=== PATIENT | male | born 1985 | race Caucasian/White ===

== ENCOUNTER 2019-08-04 09:13 | Day surgery (SDC) | payer OTHER ==
[2019-08-04 09:49] LABS: Absolute Lymphocytes (CBC) 3.3 K/uL (0.7-4.9); Basophils % 0.6 % (0-1.3); Hematocrit 48.1 % (39.6-49.0); Lymphocytes % 30.7 % (15.3-44.8); MPV 8.5 fL (7.6-11.3); RBC Red Blood Cell Count 5.11 M/uL (4.33-5.43)
[2019-08-04 10:04] LABS: BUN Blood Urea Nitrogen 17 mg/dL (7-18); Bicarbonate 28 mmol/L (21-32); Glucose Level 112 mg/dL (74-106); Potassium 3.8 mmol/L (3.5-5.1); Sodium Level 138 mmol/L (136-145)
[2019-08-04] MEDS ORDERED: NA CHLORIDE 0.9% 1,000 ML ONE (10:06)
[2019-08-04] MEDS ORDERED: CEFOXITIN/SWI 1gm 1 GM/10 ML SYR ONE (10:06)
[2019-08-04] MEDS ORDERED: FENTANYL CITR 100 MCG/2 ML ONE ×2 (10:10→10:43)
[2019-08-04] MEDS ORDERED: MIDAZOLAM HCL 2 MG/2 ML INJ ONE (10:10)
[2019-08-04] MEDS ORDERED: LIDOCAINE 2% MPF 5 ML VIAL ONE ×2 (10:10→10:44)
[2019-08-04] MEDS ORDERED: dexAMETHasone 10 MG/ML VIAL ONE ×2 (10:10→10:43)
[2019-08-04] MEDS ORDERED: propofoL 200 MG/20 ML VIAL IV ONE ×2 (10:10→10:43)
--- NOTE | 2019-08-04 10:20 | RAD REPORT ---
EXAM DESCRIPTION: RAD - Chest Pa And Lat (2 Views) - 08/04/2019 10:04 am CLINICAL HISTORY: PREOP STAT ROOM 1, preop exam pending hemorrhoid surgery COMPARISON: None TECHNIQUE: Frontal and lateral views of the chest were obtained. FINDINGS: The lungs are clear. Heart size is normal and central vasculature is within normal limit s. No pleural effusion or pneumothorax seen. No acute bony finding noted. No aortic abnormality. IMPRESSION: No acute cardiopulmonary process.
--- OUTSIDE RECORDS SUMMARY | 2019-08-04 10:24 | XMS REPORT | Continuity of Care Document ---
:1985 Author Organization [facility] Care Team Providers Name Role Phone [facility] Unavailable Un available Problems Problem Status Onset Classification Date Comments Sourc e Date Reported Diabetes mellitus Active Problem 02/21/2017 M H Medical (disorder) Group Gastroesophageal Active Problem 02/21/2017 Medical reflux disease Group (disorder) History of polyp of Active Problem 02/21/2017 Medical colon (situation) Gr oup Hypertensive Active Problem 02/21/2017 Med ical disorder, systemic G roup arterial (disorder) Morbid obesity Active Problem 02/21/2017 M edical (disorder) Group Narcotic drug user Active Problem 02/21/2017 Medical (finding) Group Medications Medication Details Route Status Patient Ordering Order Source Instructions Provider Date Hydrocortisone 25 1 appl, [place], Active MH MG/ML Rectal BID, X 14 017 Medical Cream day, # 30 Group gm, 3 Refill(s), Pharmacy: [facility] [id number] Esomeprazole 40 40 mg = 1 Active MH MG Enteric Coated cap, PO, 017 Medic al Capsule [Nexium] BID, # 60 Group cap, 11 Refill(s), Pharmacy: [facility] [id number] metoprolol PO, Daily, 0 Active MH extended release Refill(s) 017 Medic al Group Cymbalta PO, 0 Active MH Refill(s) 017 Medical Group Allergies, Adverse Reactions, Alerts No Known Medication Allergies Immunizations No Data Provided for This Section Results No Data Provided for This Section Pathology Reports No Data Provided for This Section Diagnostic Reports No Data Provided for This Section Consultation Notes No Data Provided for This Section Discharge Summaries No Data Provided for This Section History and Physicals No Data Provided for This Section Vital Signs Vital Sign Value Date Comments Source Height 170.18 cm 02/18/2017 Medical Grou p Weight 119.205 02/18/2017 Medical Grou p BMI Calculated 41.16 02/18/2017 Medical Gr oup Systolic (mm Hg) 144 02/18/2017 Medical Group Diastolic (mm Hg) 82 02/18/2017 Medical Group Encounters Location Location Encounter Encounter Reason Attending ADM DC Stat us Source Details Type Number For Provider Date Date Visit Outpatient [id number] [place] 12/08 [facility] [place] [facility] [id number] LUPE MARTE 02/10 [facility] Out[facility] [id number] WAGNER 02/18 [facility] [place]Note 2] [facility] Outpatient [id number] Wagner 02/18 02/19 [facility] [place] Procedures Procedure Code Date Perfomer Comments Source Colonoscopy [id number] 12/31/19 Medical 17 Group Esophagogastroduodenoscopy [id number] 12/31/19 Medical 17 Group Hemorrhoidectomy [id number] Medic al Group Reconstruction of facial bones [id number] Medical Group Assessment and Plan No Data Provided for This Section Plan of Care No Data Provided for This Section Social History Social History Date Source Social History TypeResponse 02/18/2017 Medical G roufrancia Substance Abuse Use: None. Alcohol Current Smoking Status Former smoker; Exposure to Tobacco Smoke None; Cigarette Smoking Last 365 Days Yes; Reg Smoking Cessation Counseling No Family History No Data Provided for This Section Advance Directives No Data Provided for This Section Functional Status No Data Provided for This Section
--- OUTSIDE RECORDS SUMMARY | 2019-08-04 10:24 | XMS REPORT ---
:[address] [facility] t Address [address] [place] [address] [address] [place] [address] Care Team Providers Name Role Phone Amber Rod Attending Clinician Problems Condition Condition Condition Status Onset Resolution Last Treating Co mments Source Name Details Category Date Date Treatment Clinician Date Diabetes Problem Active 2017-02-21 mellitus 01:27:35 Medica l (disorder) Diabetes Gr oup mellitus (disorder) Active Problem 02/21/2017 Medical Group Gastroesop Problem Active 2017-02-21 M H hageal 01:27:35 Medical reflux Group disease Gastroesop (disorder) hageal reflux disease (disorder) Active Problem 02/21/2017 Medical Group History of Problem Active 2017-02-21 M H polyp of 01:27:35 Medica l colon History Group (situation of polyp ) of colon (situation ) Active Problem 02/21/2017 Medical Group Hypertensi Problem Active 2017-02-21 H ve 01:27:35 Medical disorder, Group systemic Hypertensi arterial ve (disorder) disorder, systemic arterial (disorder) Active Problem 02/21/2017 Medical Group Morbid Problem Active 2017-02-21 obesity 01:27:35 Medical (disorder) Morbid Grou p obesity (disorder) Active Problem 02/21/2017 Medical Group Narcotic Problem Active 2017-02-21 drug user 01:27:35 Medic al (finding) Narcotic Anhomy up drug user (finding) Active Problem 02/21/2017 Medical Group Allergies, Adverse Reactions, Alerts This patient has no known allergies or adverse reactions. Social History Social Habit Start Date Stop Date Quantity Comments Source Social History 2017-02-18 2017-02-18 Dl olivo 20:11:46 20:11:46 [facility] Medications Ordered Filled Start Stop Current Ordering Indication Dosage Frequency Signature Comments Components Source Medication Medication Date Date Medication? Clinician (SIG) Name Name Hydrocortis 2016-03 Yes 1 appl, one 25 2-14 [place], BID, X Medical MG/ML 20:34: 14 day, # Group Rectal 00 30 gm, 3 Cream Refill(s), Pharmacy: [facility] [id number] Esomeprazol 2016-03 Yes 40 mg = 1 M H e 40 MG 2-14 cap, PO, Medical Enteric 20:34: BID, # 60 Group Coated 00 cap, 11 Capsule Refill(s), [Nexium] Pharmacy: [facility] [id number] metoprolol 2016-03 Yes PO, Daily, M H extended 2-14 0 Medical release 20:12: Refill(s) Group 00 Cymbalta 2016-03 Yes PO, 0 MH 2-14 Refill(s) Medical 20:12: Group 00 Vital Signs Vital Name Observation Time Observation Value Comments Source Height 2017-02-18 20:10:00 170.18 cm Medic al Group Weight 2017-02-18 20:10:00 Medic al Group BMI Calculated 2017-02-18 20:10:00 Med ical Group Systolic (mm Hg) 2017-02-18 20:10:00 M edical Group Diastolic (mm Hg) 2017-02-18 20:10:00 Medical Group Procedures Procedure Date / Time Performing Source Performed Clinician Colonoscopy 2016-12-30 05:00:00 Medical G roup Esophagogastroduodenoscopy 2016-12-30 05:00:00 [facility] Medical Group Hemorrhoidectomy Medical Grou p Reconstruction of facial bones M Medical Group Encounters Start End Encounter Admission Attending Care Care Encounter Source Date/Time Date/Time Type Type Clinicians Facility Department ID 2017-02-18 2017-02-19 [id number] 19:45:00 05:59:59 [facility] Jamila 2017-02-18 2017-02-18 Outpatient Marcel [facility] [id number] 13:45:00 23:59:59 Wagner Clark 03 2017-02-18 2017-02-18 Outpatient [facility] [id number] Memoria 13:45:00 13:45:00 03 nicol Russ 2017-02-10 2017-02-10 [id number] Memoria 09:00:00 09:00:00 04 nicol Russ 2016-12-08 2016-12-08 Outpatient [facility] [id number] Memoria 14:45:00 14:45:00 01 nicol Russ Results This patient has no known results.
[2019-08-04] MEDS ORDERED: GLYCOPYRROLATE 0.2 MG/ML SYR ONE (11:03)
[2019-08-04] MEDS ORDERED: KETOROLAC 30 MG/ML INJ ONE (11:05)
[2019-08-04] MEDS: HYDROMORPHONE HCL 2 MG/ML inj ONE ×4 (11:23→11:41)
[2019-08-04] MEDS: HYDROMORPHONE HCL 1 MG/ML INJ ONE ×2 (11:46→11:52)
[2019-08-04] MEDS ORDERED: LABETALOL 20 MG/4ML SYRINGE IV ONE ×2 (12:18→13:42)
[2019-08-04] MEDS ORDERED: HYDROCODONE/APAP 7.5/325 MG TAB ONE (12:54)
[2019-08-04 14:02] VITALS: TEMP 98.2; O2SAT 95
[2019-08-04 14:03] VITALS: BP 144/99
--- NOTE | 2019-08-04 21:04 | OP ---
Date of Procedure: 08/04/2019 Surgeon: Felipe Elliott MD Preoperative Diagnosis: Thrombosed hemorrhoid. Postoperative Diagnosis: Thrombosed hemorrhoid, complex in nature with external and internal compone nts. Procedure Performed: Exam under anesthesia, rigid proctoscopy, complex hemorrhoidectomy x1. Estimated Blood Loss: Minimal. Specimen: Thrombosed hemorrhoid. Findings: Left lateral complex thrombosed hemorrhoids. Anesthesia: General. Complications: None. Patient tolerated the procedure in stable condition, taken to Recovery in good general condition. Procedure In Detail: Patient was brought to the OR and placed in supine position. General anesthesi a begun. Patient was prepped and draped in the usual sterile fashion. Exam under anesthesia reveale d a thrombosed hemorrhoids in the left lateral. Rigid proctoscopy confirmed the finding, had an exte rnal and internal components. Marcaine 0.5% infiltrated for postop pain control. The Harmonic Scalp el was used to excise the entire hemorrhoid complex in nature. There are external and internal compon ents, sent to Pathology. No evidence of bleeding noted. Rectal pack consisting of Gel-Foam, Surgice l, Vaseline gauze was placed in the anal canal. Sterile dressing was applied. Patient was awakened and taken to Recovery in good general condition. Discharge Note: Patient will go to Day Surgery, then home when stable. Disposition: Home. Condition: Stable. Discharge Instructions: Resume home medications and diet. Activity as tolerated. No heavy lifting. Remove outer dressing in a.m. Sitz baths q.i.d. and after bowel movements. High-fiber diet. Cola ce 100 mg p.o. b.i.d., Procto- HC 2.5% to anus b.i.d. and p.r.n., Tylenol No.3 one tablet q.4 p.r.n. pain. Follow up in my office in 2 weeks. Call for appointment. PILAR/GARY Voice ID: [id number] Report ID: [id number]
--- NOTE | 2019-08-05 12:58 | EKG ---
Test Date: 2019-08-04 Test Time: 09:46:57 Director Process: CARLOS ENRIQUE MEASUREMENT RESULTS: Intervals: Rate: 83 WY: 136 QRSD: 90 QT: 366 QTc: 430 [place]: P: 58 WY: 136 QRS: 71 T: 72 INTERPRETIVE STATEMENTS: Normal sinus rhythm Normal ECG No previous ECG available for comparison Electronically Signed On 08-05-19 12:57:55 CDT by True Portillo
== END 2019-08-04 13:55 | disposition home or self-care (01) ==
LOC: OR 09:13
PROVIDERS: ATTEND Surgery
PROC: 0DJD8ZZ Inspection of Lower Intestinal Tract, Via Natural or Artificial Opening Endoscopic (ICD-10-PCS; 2019-08-04)
PROC: 06BY4ZC Excision of Hemorrhoidal Plexus, Percutaneous Endoscopic Approach (ICD-10-PCS; principal; 2019-08-04 12:45)
DX: K64.5 Perianal venous thrombosis (principal)
CPT/HCPCS: 46255; 93005; 85025; 80048; 36415; 82947; 88304; 71046; 45300; J2704; J2250; J1170 ×2; J3010; J1100; J7030; 88302

== ENCOUNTER → 2023-03-19 | Emergency (ER) | payer OTHER ==
[~2023-03-19] MED LIST: DIAZEPAM 10 MG/2 ML INJ SYRINGE ONE; NA CHLORIDE 0.9% 1,000 ML ONE
[2023-03-19 17:43] LABS: Barbiturates NEGATIVE (NEGATIVE); Benzodiazepines NEGATIVE (NEGATIVE); Cocaine NEGATIVE (NEGATIVE); METHAMPHETAM NEGATIVE (NEGATIVE); Methadone NEGATIVE (NEGATIVE); Opiates NEGATIVE (NEGATIVE); Phencyclidine NEGATIVE (NEGATIVE); THC Cannibis NEGATIVE (NEGATIVE)
[2023-03-19 17:49] LABS: Specific Gravity 1.027 (1.005-1.030); Urine Bacteria None Seen /HPF (<20); Urine Bilirubin NEGATIVE (Negative); Urine Blood Negative (Negative); Urine Clarity Clear (Clear); Urine Color Light-Yellow (Yellow); Urine Glucose 4+ (Over) (Negative); Urine Mucus Slight /HPF (None Seen); Urine Protein TRACE (Negative); Urine RBC None Seen /HPF (None Seen); Urine Urobilinogen Normal (Normal)
[2023-03-19 17:50] LABS: Absolute Lymphocytes (CBC) 2.7 K/uL (0.7-4.9); Hematocrit 51.7 % (39.6-49.0); Lymphocytes % 25.4 % (15.3-44.8); MCV 89.5 fL (80-100); MPV 7.4 fL (7.6-11.3); Platelets 255 thou/uL (152-406); RBC Red Blood Cell Count 5.77 M/uL (4.33-5.43)
[2023-03-19 17:53] LABS: Protime INR 0.91
[2023-03-19 18:02] LABS: ALT/SGPT 100 U/L (16-61); AST/SGOT 46 U/L (15-37); Albumin 3.6 g/dL (3.4-5.0); Alkaline Phosphatase 111 U/L (45-117); BUN Blood Urea Nitrogen 12 mg/dL (7-18); Bicarbonate 24 mEq/L (21-32); Bilirubin Direct 0.2 mg/dL (0-0.2); Bilirubin Indirect, Calculated 0.6 mg/dL (0.2-0.8); Bilirubin Total 0.8 mg/dL (0.2-1.0); Glomerular Filtration Rate 85 ml/min (=/>90); Glucose Level 143 mg/dL (74-106); Potassium 3.5 mEq/L (3.5-5.1); Protein, Total 7.9 g/dL (6.4-8.2); Sodium Level 134 mEq/L (136-145)
--- NOTE | 2023-03-19 19:04 | ER ---
Nurse's Notes [facility] Name: Cristiano Bbo Age: 37 yrs Sex: Male : 1985 Arrival Date: 03/19/2023 Time: 15:39 Bed 14 Private MD: Diagnosis: Alcohol dependence with withdrawal Presentation: 03/19 15:47 Chief complaint: EMS states: "sent here [place] [facility] for possible alcohol aa5 withdrawal". Pt normally drinks 3 pints of vodka every day. Pt reports last drink was yesterday at 0900. Pt states "I want to detox". 15:47 Acuity: ROLY 2 aa5 15:47 Coronavirus screen: At this time, the client does not indicate any symptoms associated aa5 with coronavirus-19. Ebola Screen: Patient denies travel to an Ebola-affected area in the 21 days before illness onset. Initial Sepsis Screen: Does the patient meet any 2 criteria? HR > 90 bpm. Does the patient have a suspected source of infection? No. Patient's initial sepsis screen is negative. Risk Assessment: Do you want to hurt yourself or someone else? Patient reports no desire to harm self or others. Onset of symptoms was March 19, 2023. 15:47 Method Of Arrival: Wheelchair aa5 Historical: - Allergies: 15:50 Ativan (diarrhea ); aa5 - PMHx: 15:48 acid reflux; Hypercholesterolemia; Hypertension; Prediabetic; Alcoholism; aa5 - PSHx: 15:48 facial reconstruction; aa5 - Immunization history:: Adult Immunizations unknown. - Social history:: Smoking status: Patient reports the use of cigarette tobacco products, Patient uses alcohol, 3 pints of Vodka . Screenin:35 [facility] ED Fall Risk Assessment (Adult) History of falling in the last 3 months, mb9 including since admission No falls in past 3 months (0 pts) Confusion or Disorientation No (0 pts) Intoxicated or Sedated No (0 pts) Impaired Gait No (0 pts) Mobility Assist Device Used No (0 pt) Altered Elimination No (0 pt) Score/Fall Risk Level 0 - 2 = Low Risk Oriented to surroundings, Maintained a safe environment, Educated pt \\T\\ family on fall prevention, incl call for assistance when getting out of bed. Abuse screen: Denies threats or abuse. Nutritional screening: No deficits noted. Tuberculosis screening: No symptoms or risk factors identified. Assessment: 17:14 Reassessment: Pt brought back to ER room. mb9 17:34 General: Appears in no apparent distress. Behavior is cooperative, anxious. Pain: mb9 Denies pain. Neuro: Jones Agitation-Sedation Scale (RASS): 0 - Alert and Calm Level of Consciousness is awake, alert, obeys commands, Oriented to person, place, time, situation, Appropriate for age Pupils are PERRLA. Cardiovascular: Heart tones S1 S2 present Patient's skin is warm and dry. Rhythm is sinus tachycardia. Respiratory: Airway is patent Respiratory effort is even, unlabored, Respiratory pattern is regular, symmetrical. GI: Abdomen is round non-distended, Bowel sounds present X 4 quads. Abd is soft and non tender X 4 quads. : No signs and/or symptoms were reported regarding the genitourinary system. EENT: No signs and/or symptoms were reported regarding the EENT system. Derm: Skin is pink, warm \\T\\ dry. Musculoskeletal: Range of motion: intact in all extremities. Vital Signs: 15:47 BP 132 / 102; Pulse 115; Resp 20 S; Temp 98.3(TE); Pulse Ox 98% on R/A; Weight 108.86 aa5 kg (R); Height 5 ft. 8 in. (R); 18:13 BP 177 / 117; Pulse 120; Resp 18; Pulse Ox 100% on R/A; mb9 18:53 BP 145 / 94; Pulse 118; Resp 18; Pulse Ox 97% on R/A; mb9 15:47 Body Mass Index 36.49 (108.86 kg, 172.72 cm) aa5 ED Course: 15:47 Patient arrived in ED. aa5 15:47 Arm band placed on. aa5 15:50 Ervin Fischer PA is PHCP. cp 15:50 Caden Larry MD is Attending Physician. cp 15:50 Frantz Faith MD is Attending Physician. cp 15:52 Triage completed. aa5 17:14 María Bourgeois, JAE is Primary Nurse. mb9 17:15 Placed in gown. Bed in low position. Call light in reach. Side rails up X 1. Client mb9 placed on continuous cardiac and pulse oximetry monitoring. NIBP monitoring applied. laboratory monitor on. 17:33 Acetaminophen Sent. bc6 17:33 Basic Metabolic Panel Sent. bc6 17:33 CBC with Diff Sent. bc6 17:33 ETOH Level Sent. bc6 17:33 Hepatic Function Sent. bc6 17:33 PT-INR Sent. bc6 17:33 Ptt, Activated Sent. bc6 17:33 Salicylate Sent. bc6 17:33 Influenza Screen (a \\T\\ B) Sent. bc6 17:33 Strep Sent. bc6 17:33 COVID-19 SARS RT PCR Sent. bc6 17:35 No provider procedures requiring assistance completed. mb9 19:20 IV discontinued, intact, bleeding controlled, No redness/swelling at site. Pressure mb9 dressing applied. Administered Medications: 17:41 Drug: Diazepam IVP 2 mg IVP once Route: IVP; Site: right antecubital; mb9 18:33 Follow up: Response: No adverse reaction mb9 18:32 Drug: Diazepam IVP 5 mg IVP once Route: IVP; Site: right antecubital; mb9 19:20 Follow up: Response: No adverse reaction mb9 18:33 Drug: NS 0.9% IV 1000 ml IV at 1 bolus Per protocol; 1000 mL bolus Route: IV; Rate: 1 mb9 bolus; Site: right antecubital; 19:20 Follow up: Response: No adverse reaction; IV Status: Completed infusion mb9 Medication: 17:35 VIS not applicable for this client. mb9 Outcome: 19:03 Discharge ordered by MD. cp 19:20 Discharged to home ambulatory, mb9 19:20 Condition: stable 19:20 Discharge instructions given to patient, family, Instructed on discharge instructions, follow up and referral plans. Demonstrated understanding of instructions, follow-up care, medications, Prescriptions given X 1, 19:20 Patient left the ED. mb9 Signatures: Yasmin Callejas RN RN aa5 Ervin Fischer PA PA cp Breneman, Mary Beth, RN RN mb9 Judit Cruz bc6 Corrections: (The following items were deleted from the chart) 15:52 15:47 Chief complaint: EMS states: "sent here from [facility] for possible alcohol aa5 withdrawal". Pt normally drinks vodka every day. aa5 15:52 15:47 Chief complaint: EMS states: "sent [place] [facility] for possible alcohol aa5 withdrawal". Pt normally drinks 3 pints of vodka every day. Pt reports last drink was yesterday at 0900. aa5 15:52 15:47 BP 132 / 102; Pulse 115bpm; Resp 20bpm; Spontaneous; Pulse Ox 98% RA; Temp 98.3F aa5 Temporal; aa5
--- NOTE | 2023-03-19 19:04 | EDPHYS ---
Physician Documentation [facility] Name: Cristiano Bob Age: 37 yrs Sex: Male : 1985 Arrival Date: 03/19/2023 Time: 15:39 Bed 14 Private MD: ED Physician Frantz Faith HPI: 03/19 16:35 This 37 yrs old Male presents to ER via Wheelchair with complaints of Alcohol cp Withdrawal. 16:35 The patient presents to the emergency department with a history of substance abuse, cp Type: vodka, 3 bottles per day, for years. 16:35 [facility] Elevated cp blood pressure, tremors today. Last drink of alcohol was yesterday. Denies history of seizures with withdrawals in the past. Historical: - Allergies: 15:50 Ativan (diarrhea ); aa5 - PMHx: 15:48 acid reflux; Hypercholesterolemia; Hypertension; Prediabetic; Alcoholism; aa5 - PSHx: 15:48 facial reconstruction; aa5 - Immunization history:: Adult Immunizations unknown. - Social history:: Smoking status: Patient reports the use of cigarette tobacco products, Patient uses alcohol, 3 pints of Vodka . ROS: 16:40 Constitutional: Negative for body aches, chills, fever, poor PO intake, cp 16:40 Eyes: Negative for injury, pain, redness, and discharge, cp 16:40 ENT: Negative for drainage from ear(s), ear pain, sore throat, difficulty swallowing, difficulty handling secretions, 16:40 Cardiovascular: Negative for chest pain, palpitations, 16:40 Respiratory: Negative for cough, shortness of breath, wheezing, 16:40 Abdomen/GI: Negative for abdominal pain, vomiting, diarrhea, constipation, black/tarry stool, rectal bleeding, 16:40 Neuro: Positive for tremor, Negative for altered mental status, dizziness, headache, seizure activity, weakness, 16:40 Psych: Positive for alcohol dependence, Negative for auditory hallucinations, visual hallucinations, homicidal ideation, suicide gesture, suicidal ideation, 16:40 All other systems are negative, Exam: 16:45 Constitutional: The patient appears in no acute distress, alert, awake, cp non-diaphoretic, non-toxic, well developed, well nourished, 16:45 Head/Face: Normocephalic, atraumatic. cp 16:45 Eyes: Periorbital structures: appear normal, Pupils: equal, round, and reactive to light and accomodation, Extraocular movements: intact throughout, Conjunctiva: normal, no exudate, no injection, Sclera: no appreciated abnormality, Lids and lashes: appear normal, bilaterally, 16:45 ENT: External ear(s): are unremarkable, Nose: is normal, Mouth: Lips: moist, Oral mucosa: pink and intact, moist, Posterior pharynx: is normal, airway is patent, no erythema, no exudate, 16:45 Neck: ROM/movement: is normal, is supple, without pain, no range of motions limitations, no nuchal rigidity, 16:45 Chest/axilla: Inspection: normal, 16:45 Cardiovascular: Rate: tachycardic, Rhythm: regular, Edema: is not appreciated, JVD: is not appreciated, 16:45 Respiratory: the patient does not display signs of respiratory distress, Respirations: normal, no use of accessory muscles, no retractions, Breath sounds: are clear throughout, 16:45 Abdomen/GI: Inspection: abdomen appears normal, Palpation: abdomen is soft and non-tender, in all quadrants, 16:45 Back: pain, is absent, ROM is normal, 16:45 Neuro: Orientation: to person, place \T\ time. Mentation: is normal, Cerebellar function: is grossly normal, Motor: moves all fours, strength is normal, Abnormal movements: resting tremor, is located in the right hand and left hand, Vital Signs: 15:47 BP 132 / 102; Pulse 115; Resp 20 S; Temp 98.3(TE); Pulse Ox 98% on R/A; Weight 108.86 aa5 kg (R); Height 5 ft. 8 in. (R); 18:13 BP 177 / 117; Pulse 120; Resp 18; Pulse Ox 100% on R/A; mb9 18:53 BP 145 / 94; Pulse 118; Resp 18; Pulse Ox 97% on R/A; mb9 15:47 Body Mass Index 36.49 (108.86 kg, 172.72 cm) aa5 MDM: 16:04 Patient medically screened. cp 19:00 ED course: Vital signs noted. Patient remains tachycardic with a heart rate in the 120s cp after a total of 7 volume was given. Discussed lab results and EKG and recommendation of inpatient treatment for alcohol withdrawals with a possible transfer to the [place]. Patient refuses at this time and requests discharge to home for continued monitoring and will follow-up outpatient next week. Patient denies any history of seizures when withdrawn off alcohol and will return if symptoms worsen. 19:02 Data reviewed: vital signs, nurses notes, lab test result(s), EKG, and as a result, I cp will discharge patient. 19:02 Consideration of Admission/Observation Escalation of care including cp admission/observation considered. I considered the following discharge prescriptions or medication management in the emergency department Medications were administered in the Emergency Department. See MAR. Care significantly affected by the following chronic conditions: Hypertension, alcoholism. Counseling: I had a detailed discussion with the patient and/or guardian regarding the historical points, exam findings, and any diagnostic results supporting the discharge/admit diagnosis, the presence of at least one elevated blood pressure reading (>120/80) during this emergency department visit, lab results, the need for outpatient follow up, a family practitioner, to return to the emergency department if symptoms worsen or persist or if there are any questions or concerns that arise at home. Response to treatment: the patient's symptoms have mildly improved after treatment. Refusal of service: The patient/guardian displays adequate decision making capability and despite a detailed discussion of alternatives, benefits, risks, and consequences refuses: Admission to the hospital for further work-up and treatment. 03/19 16:30 Order name: COVID-19 SARS RT PCR; Complete Time: 18:25 cp 03/19 16:30 Order name: Strep cp 03/19 16:30 Order name: Influenza Screen (a \T\ B); Complete Time: 18:13 cp 03/19 16:35 Order name: Acetaminophen; Complete Time: 18:13 cp 03/19 16:35 Order name: Basic Metabolic Panel; Complete Time: 18:13 cp 03/19 18:25 Interpretation: Normal except: NA 134; GLUC 143; GFR 85. cp 03/19 16:35 Order name: CBC with Diff; Complete Time: 18:13 cp 03/19 16:35 Order name: ETOH Level; Complete Time: 18:13 cp 03/19 16:35 Order name: Hepatic Function; Complete Time: 18:13 cp 01/12 16:35 Order name: PT-INR; Complete Time: 18:13 cp 03/19 16:35 Order name: Ptt, Activated; Complete Time: 18:13 cp 03/19 16:35 Order name: Salicylate; Complete Time: 18:17 cp 03/19 16:35 Order name: Urinalysis w/ reflexes; Complete Time: 18:13 cp 03/19 16:35 Order name: Urine Drug Screen; Complete Time: 18:13 cp 03/19 18:33 Order name: Throat Culture EDMS 03/19 16:35 Order name: EKG; Complete Time: 16:35 cp 03/19 16:35 Order name: EKG - Nurse/Tech; Complete Time: 17:33 cp 03/19 16:35 Order name: IV Saline Lock; Complete Time: 17:33 cp 03/19 16:35 Order name: Labs collected and sent; Complete Time: 17:33 cp 03/19 16:35 Order name: Suicide Screening ([place]); Complete Time: 17:33 cp Administered Medications: 17:41 Drug: Diazepam IVP 2 mg IVP once Route: IVP; Site: right antecubital; mb9 18:33 Follow up: Response: No adverse reaction mb9 18:32 Drug: Diazepam IVP 5 mg IVP once Route: IVP; Site: right antecubital; mb9 19:20 Follow up: Response: No adverse reaction mb9 18:33 Drug: NS 0.9% IV 1000 ml IV at 1 bolus Per protocol; 1000 mL bolus Route: IV; Rate: 1 mb9 bolus; Site: right antecubital; 19:20 Follow up: Response: No adverse reaction; IV Status: Completed infusion mb9 Disposition Summary: 03/19/23 19:03 Discharge Ordered Notes: Location: Home cp Condition: Stable cp Diagnosis - Alcohol dependence with withdrawal cp Followup: cp - With: Private Physician - When: 2 - 3 days - Reason: Recheck today's complaints Discharge Instructions: - Discharge Summary Sheet cp - Alcohol Withdrawal Syndrome cp - Alcohol Use Disorder cp - Alcohol Abuse and Nutrition cp Forms: - Medication Reconciliation Form cp - Thank You Letter cp - Antibiotic Education cp - Prescription Opioid Use cp - Patient Portal Instructions cp - Leadership Thank You Letter cp Prescriptions: - chlordiazepoxide HCl 25 mg Oral capsule - take 1 capsule ORAL route 4 times per day as needed for anxiety and alcohol cp withdrawal; 20 capsule; Refills: 0, Product Selection Permitted Addendum: 03/22/2023 20:29 I was immediately available for consultation during this patient's visit. I did not e c2 personally see the patient or discuss the patient with the PORFIRIO. . Signatures: Dispatcher [employer] Yasmin Arthur RN RN aa5 Ervin Fischer PA PA cp Breneman, Mary Beth, RN RN mb9 Frantz Faith MD MD ec2
[2023-03-19 21:49] VITALS: TEMP 98.3
[2023-03-19 22:01] VITALS: BP 145/94; O2SAT 97
--- NOTE | 2023-03-22 17:06 | EKG ---
Test Date: 2023-03-19 Test Time: 17:30:43 Environmental Remediation Consultant: MB MEASUREMENT RESULTS: Intervals: Rate: 120 SD: 124 QRSD: 84 QT: 330 QTc: 466 Wilkinson: P: 77 SD: 124 QRS: 78 T: 77 INTERPRETIVE STATEMENTS: Sinus tachycardia Otherwise normal ECG Compared to ECG 06/10/2022 17:32:20 Myocardial infarct finding no longer present T-wave abnormality no longer present Possible ischemia no longer present Electronically Signed On 03-22-23 16:59:35 NURSE WOUND by Chino Walker
== END ==
LOC: ER 15:39
DX: F10.239 Alcohol dependence with withdrawal, unspecified (principal); I10 Essential (primary) hypertension; Z11.52 Encounter for screening for COVID-19; Z88.8 Allergy status to other drugs, medicaments and biological substances; Z72.0 Tobacco use
CPT/HCPCS: 96361; 93005; 87070; 85025; 81001; 80048; 36415; 85610; 80076; 87081; 85730; 87635; 80307; 87804 ×2; 96374; 99285; 80143; 80179; 82077; J3360 ×2; J7030

== ENCOUNTER 2024-06-14 10:00 | Inpatient (IN) | payer OTHER ==
[2024-06-14] MEDS ORDERED: LORazepam 2 MG/ML VIAL ONE (10:37)
[2024-06-14] MEDS ORDERED: THIAMINE 200 MG/2 ML INJ ONE (10:37)
[2024-06-14] MEDS ORDERED: MULTIVITAMIN TAB PO ONE (10:38)
[2024-06-14] MEDS ORDERED: NA CHLORIDE 0.9% 1,000 ML ONE ×2 (10:38→14:00)
[2024-06-14 10:48] LABS: Absolute Basophils 0.1 K/uL (0-0.5); Absolute Eosinophils 0.2 K/uL (0-0.5); Absolute Lymphocytes (CBC) 1.9 K/uL (0.7-4.9); Absolute Monocytes 0.6 K/uL (0.1-1.3); Absolute Neutrophil 3.3 K/uL (1.8-8.0); Basophils % 1.2 % (0-1.3); Eosinophils % 3.3 % (0-4.4); Hematocrit 44.8 % (39.6-49.0); Hemoglobin 15.4 g/dL (13.6-17.9); Lymphocytes % 31.4 % (15.3-44.8); MCH 29.4 pg (27.0-35.0); MCHC 34.5 g/dL (32.0-36.0); MCV 85.1 fL (80-100); MPV 7.2 fL (7.6-11.3); Monocytes % 9.5 % (3.3-12.3); Neutrophils % 54.6 % (41.7-73.7); Nucleated Red Blood Cells % 0.1 % (0-0); Platelets 270 thou/uL (152-406); RBC Red Blood Cell Count 5.26 M/uL (4.33-5.43); Red Cell Distribution Width 16.5 % (12.1-15.2)
[2024-06-14 11:10] LABS: Albumin 3.9 g/dL (3.4-5.0); Albumin/Globulin Ratio 1.1 (1.1-1.8); Anion Gap 14.8 mEq/L (5.0-15.0); Bilirubin Total 0.4 mg/dL (0.2-1.0); Globulin 3.7 g/dL (2.3-3.5); Potassium 3.8 mEq/L (3.5-5.1); Protein, Total 7.6 g/dL (6.4-8.2)
--- NOTE | 2024-06-14 12:42 | EDPHYS ---
Physician Documentation [facility] Name: Cristiano Bob Age: 38 yrs Sex: Male : 1985 Arrival Date: 06/14/2024 Time: 10:00 Bed 2 Private MD: ED Physician Damien Lopez HPI: 06/14 10:55 This 38 yrs old Male presents to ER via Ambulatory with complaints of detox. ms3 10:55 38-year-old male with past medical history of acid reflux, alcoholism, hyperlipidemia, ms3 hypertension presents to the emergency department for alcohol withdrawal. Patient states he drinks approximately 750 mL of vodka per day. Patient states that some days he drinks 1500 mL of vodka. Patient endorses nausea and vomiting. Patient denies any alleviating or inciting factors. Patient states he would like to quit drinking and his last drink was this morning which was half a 750 mL bottle.. Historical: - Allergies: 10:16 No Known Allergies; jl7 - PMHx: 10:16 acid reflux; Alcoholism; Hypercholesterolemia; Hypertension; Prediabetic; jl7 - PSHx: 10:16 facial reconstruction; jl7 - Immunization history:: Adult Immunizations unknown. - Infectious Disease History:: Denies. - Social history:: Smoking status: Patient reports the use of cigarette tobacco products, smokes one pack cigarettes per day. Patient uses alcohol, on a daily basis. Vodka 750 mL. ROS: 10:55 Constitutional: Negative for fever, and chills. Cardiovascular: Negative for chest ms3 pain, and palpitations. Respiratory: Negative for shortness of breath, cough, wheezing, and pleuritic chest pain, Abdomen/GI: Negative for abdominal pain, nausea, vomiting, diarrhea, and constipation, MS/Extremity: Negative for injury and deformity, Skin: Negative for injury, rash, and discoloration, 10:55 Neuro: Positive for tremor, Exam: 10:55 Constitutional: This is a well developed, well nourished patient who is awake, alert, ms3 and in no acute distress. Respiratory: Lungs have equal breath sounds bilaterally, clear to auscultation and percussion. No rales, rhonchi or wheezes noted. No increased work of breathing, no retractions or nasal flaring. Abdomen/GI: Soft, non-tender, with normal bowel sounds. No distension or tympany. No guarding or rebound. No evidence of tenderness throughout. 10:55 Skin: Warm, dry with normal turgor. Normal color with no rashes, no lesions, and no evidence of cellulitis. 10:55 Cardiovascular: Rate: tachycardic, Rhythm: regular, Pulses: no pulse deficits are appreciated, Heart sounds: normal, normal S1and S2, Edema: is not appreciated, Vital Signs: 10:14 BP 157 / 100; Pulse 119; Resp 17; Temp 98.7; Pulse Ox 94% ; Weight 99.79 kg; Height 5 jl7 ft. 8 in. ; Pain 0/10; 11:30 BP 131 / 75; Pulse 113; Resp 18; Pulse Ox 91% ; cm10 13:24 BP 149 / 90; Pulse 121; Resp 24; Pulse Ox 93% on 2 lpm NC; db 14:31 BP 142 / 85; Pulse 116; Resp 20; Pulse Ox 91% on 2 lpm NC; cm10 10:14 Body Mass Index 33.45 (99.79 kg, 172.72 cm) jl7 10:14 Pain Scale: Adult jl7 MDM: 10:16 Medical Screening Exam initiated ms3 10:55 Differential Diagnosis Alcohol withdrawal versus electrolyte abnormality versus rhabdo. ms3 14:15 Data reviewed: vital signs, nurses notes, lab test result(s), and as a result, I will ms3 discharge patient. Consideration of Admission/Observation Patient was admitted/placed on observation. Management of patient was discussed with the following: Hospitalist: Dr Trivedi. I considered the following discharge prescriptions or medication management in the emergency department Medications were administered in the Emergency Department. See MAR. Counseling: I had a detailed discussion with the patient and/or guardian regarding the historical points, exam findings, and any diagnostic results supporting the discharge/admit diagnosis, lab results, the need for further work-up and treatment in the hospital. Medication response: Ativan. Response to treatment: the patient's symptoms have mildly improved after treatment, and as a result, I will admit patient. ED course: Discussed necessity for admission with patient and his spouse. They understand and agree with plan. Case was discussed with hospitalist and they accept patient to the intensive care unit. 06/14 10:17 Order name: CBC with Diff; Complete Time: 11:08 ms3 06/14 10:17 Order name: CMP; Complete Time: 12:04 ms3 06/14 10:17 Order name: Lipase; Complete Time: 12:04 ms3 06/14 10:17 Order name: Alcohol Level; Complete Time: 12:04 ms3 06/14 10:19 Order name: CK; Complete Time: 12:04 ms3 06/14 13:05 Order name: CBC with Automated Diff EDMS 06/14 13:05 Order name: CBC with Automated Diff EDMS 06/14 13:05 Order name: CBC with Automated Diff EDMS 06/14 13:06 Order name: CBC with Automated Diff EDMS 06/14 13:06 Order name: CBC with Automated Diff EDMS 06/14 13:06 Order name: Comprehensive Metabolic Panel EDMS 06/14 13:06 Order name: Comprehensive Metabolic Panel EDMS 06/14 13:06 Order name: Comprehensive Metabolic Panel EDMS 06/14 13:06 Order name: Comprehensive Metabolic Panel EDMS 06/14 13:06 Order name: Comprehensive Metabolic Panel EDMS 06/14 13:06 Order name: Magnesium EDMS 06/14 13:06 Order name: Magnesium EDMS 06/14 13:06 Order name: Magnesium EDMS 06/14 13:06 Order name: Magnesium EDMS 06/14 13:06 Order name: Magnesium EDMS 06/14 13:06 Order name: Phosphorus EDMS 06/14 13:06 Order name: Phosphorus EDMS 06/14 13:06 Order name: Phosphorus EDMS 06/14 13:06 Order name: Phosphorus EDMS 06/14 13:06 Order name: Phosphorus EDMS 06/14 13:06 Order name: Delirium Tremens Prophylaxis-IV Meds EDMS 06/14 10:17 Order name: IV Saline Lock; Complete Time: 10:47 ms3 06/14 10:17 Order name: Labs collected and sent; Complete Time: 10:47 ms3 Administered Medications: 10:46 Drug: asyrroynhwpgv-bevz-yvwmv acid 18 mg-400 mcg 1 tabs PO once Route: PO; cm10 11:36 Follow up: Response: No adverse reaction cm10 10:46 Drug: NS 0.9% IV 1000 ml IV at 1000 ml once; to be given as a bolus over 60 minutes cm10 Route: IV; Rate: 1000 ml; Site: right forearm; 11:35 Follow up: Response: No adverse reaction; IV Status: Completed infusion; IV Intake: cm10 1000ml 10:47 Drug: Ativan IVP 2 mg IVP once Route: IVP; Site: right forearm; cm10 11:35 Follow up: Response: No adverse reaction cm10 10:47 Drug: Thiamine IV 100 mg IV at calculated rate once Route: IV; Rate: calculated rate; cm10 Site: right forearm; 11:35 Follow up: Response: No adverse reaction; IV Status: Completed infusion; IV Intake: [id number] 14:03 Drug: Nicoderm CQ Transdermal Patch 21 mg/24 hr 1 patches Transdermal once Route: cm10 Transdermal; Site: affected area; 14:57 Follow up: Response: No adverse reaction cm10 14:04 Drug: NS 0.9% IV 1000 ml IV at 1 bolus Per protocol; to be given as a bolus over 60 cm10 minutes Route: IV; Rate: 1 bolus; Site: right forearm; 14:57 Follow up: Response: No adverse reaction; IV Status: Completed infusion; IV Intake: cm10 1000ml Disposition Summary: 06/14/24 12:41 Hospitalization Ordered Notes: Hospitalization Status: Inpatient Admission ms3 Provider: Hira Trivedi ms3 Location: Intensive Care Unit ms3 Condition: Stable ms3 Problem: new ms3 Symptoms: are unchanged ms3 Bed/Room Type: Standard ms3 Room Assignment: 4-(06/14/24 14:04) [facility] Diagnosis - Alcohol abuse with other alcohol-induced disorders ms3 - Elevated lipase ms3 - Sinus tachycardia ms3 - Essential (primary) hypertension ms3 Forms: - Medication Reconciliation Form ms3 - SBAR form ms3 - Leadership Thank You Letter ms3 Critical care time excluding procedures: 14:15 Critical care time: Bedside Care: 35 minutes. Total time: 35 minutes ms3 Signatures: Dispatcher [employer] EDMS Oscar Omer, TERESOC BEER MERCHANT-Cla1 Dustin Bah RN RN jl7 Damien Lopez DO DO ms3 Toya Palma, JAE RN cm10 Corrections: (The following items were deleted from the chart) 10:18 10:16 Allergies: Ativan (diarrhea); jl7 jl7 12:42 12:41 Chest pain, unspecified ms3 ms3 14:04 12:41 ms3 jl7
--- NOTE | 2024-06-14 12:42 | ER ---
Nurse's Notes [facility] Name: Cristiano Bob Age: 38 yrs Sex: Male : 1985 Arrival Date: 06/14/2024 Time: 10:00 Bed 2 Private MD: Diagnosis: Alcohol abuse with other alcohol-induced disorders;Elevated lipase;Sinus tachycardia;Essential (primary) hypertension Presentation: 06/14 10:14 Chief complaint: Patient states: Alcohol withdrawal, usually drink 750mL Vodka daily, jl7 sometimes 2, last drink this morning about half the bottle. Coronavirus screen: At this time, the client does not indicate any symptoms associated with coronavirus-19. Ebola Screen: No symptoms or risks identified at this time. Initial Sepsis Screen: Does the patient meet any 2 criteria? No. Patient's initial sepsis screen is negative. Does the patient have a suspected source of infection? No. Patient's initial sepsis screen is negative. Risk Assessment: Do you want to hurt yourself or someone else? Patient reports no desire to harm self or others. Onset of symptoms is unknown. 10:14 Method Of Arrival: Ambulatory jl7 10:14 Acuity: ROLY 2 jl7 Triage Assessment: 10:16 General: Appears in no apparent distress. uncomfortable, Behavior is calm, cooperative, jl7 appropriate for age. Pain: Denies pain. Neuro: Level of Consciousness is awake, alert, obeys commands, Oriented to person, place, time, situation, Gait is steady. Historical: - Allergies: 10:16 No Known Allergies; jl7 - PMHx: 10:16 acid reflux; Alcoholism; Hypercholesterolemia; Hypertension; Prediabetic; jl7 - PSHx: 10:16 facial reconstruction; jl7 - Immunization history:: Adult Immunizations unknown. - Infectious Disease History:: Denies. - Social history:: Smoking status: Patient reports the use of cigarette tobacco products, smokes one pack cigarettes per day. Patient uses alcohol, on a daily basis. Vodka 750 mL. Screenin:48 [facility] ED Fall Risk Assessment (Adult) History of falling in the last 3 months, cm10 including since admission No falls in past 3 months (0 pts) Confusion or Disorientation No (0 pts) Intoxicated or Sedated Yes (3 pts) Impaired Gait No (0 pts) Mobility Assist Device Used No (0 pt) Altered Elimination No (0 pt) Score/Fall Risk Level 0 - 2 = Low Risk Oriented to surroundings, Maintained a safe environment, Hourly rounding (assess needs \T\ fall precautionary measures) done. Abuse screen: Denies threats or abuse. Denies injuries from another. Nutritional screening: No deficits noted. Tuberculosis screening: No symptoms or risk factors identified. Assessment: 10:55 General: Appears in no apparent distress. comfortable, Behavior is calm, cooperative, cm10 appropriate for age. General: Smells of alcohol. Pain: Denies pain. Neuro: No deficits noted. Level of Consciousness is awake, alert, obeys commands, Oriented to person, place, time, situation, Appropriate for age. Cardiovascular: Patient's skin is warm and dry. Rhythm is sinus tachycardia. Respiratory: No deficits noted. Airway is patent Respiratory effort is even, unlabored, Respiratory pattern is regular, symmetrical. Derm: Skin is pink, warm \T\ dry. Musculoskeletal: Range of motion: intact in all extremities. 11:55 Reassessment: Patient appears in no apparent distress at this time. Patient and/or cm10 family updated on plan of care and expected duration. Pain level reassessed. Patient is alert, oriented x 3, equal unlabored respirations, skin warm/dry/pink. 13:24 Reassessment: PATIENT PLACED ON NC 2L DUE TO O2 DIPPED TO 88% RA RESTING. db 14:31 Reassessment: Patient appears in no apparent distress at this time. Patient and/or cm10 family updated on plan of care and expected duration. Pain level reassessed. Patient is alert, oriented x 3, equal unlabored respirations, skin warm/dry/pink. Vital Signs: 10:14 BP 157 / 100; Pulse 119; Resp 17; Temp 98.7; Pulse Ox 94% ; Weight 99.79 kg; Height 5 jl7 ft. 8 in. ; Pain 0/10; 11:30 BP 131 / 75; Pulse 113; Resp 18; Pulse Ox 91% ; cm10 13:24 BP 149 / 90; Pulse 121; Resp 24; Pulse Ox 93% on 2 lpm NC; db 14:31 BP 142 / 85; Pulse 116; Resp 20; Pulse Ox 91% on 2 lpm NC; cm10 10:14 Body Mass Index 33.45 (99.79 kg, 172.72 cm) jl7 10:14 Pain Scale: Adult jl7 Vitals: 13:24 Cardiac Rhythm Assessment Sinus tach. db ED Course: 10:04 Patient arrived in ED. al6 10:10 Damien Lopez DO is Attending Physician. ms3 10:16 Triage completed. jl7 10:16 Arm band placed on right wrist. jl7 10:21 Toya Palma, RN is Primary Nurse. cm10 10:47 Patient has correct armband on for positive identification. Bed in low position. Call cm10 light in reach. Side rails up X 1. Client placed on continuous cardiac and pulse oximetry monitoring. NIBP monitoring applied. vice president of consulting services on. 10:47 Initial lab(s) drawn, by me, sent to lab. Inserted saline lock: 18 gauge in right cm10 forearm, using aseptic technique. Blood collected. Flushed with 10 mL NS. 12:40 Hira Trivedi MD is Hospitalizing Provider. ms3 14:31 Provided Education on: need for admit. cm10 14:32 No provider procedures requiring assistance completed. Patient admitted, IV remains in cm10 place. Administered Medications: 10:46 Drug: shflqsqqrblyo-gojd-lphjt acid 18 mg-400 mcg 1 tabs PO once Route: PO; cm10 11:36 Follow up: Response: No adverse reaction cm10 10:46 Drug: NS 0.9% IV 1000 ml IV at 1000 ml once; to be given as a bolus over 60 minutes cm10 Route: IV; Rate: 1000 ml; Site: right forearm; 11:35 Follow up: Response: No adverse reaction; IV Status: Completed infusion; IV Intake: cm10 1000ml 10:47 Drug: Ativan IVP 2 mg IVP once Route: IVP; Site: right forearm; cm10 11:35 Follow up: Response: No adverse reaction cm10 10:47 Drug: Thiamine IV 100 mg IV at calculated rate once Route: IV; Rate: calculated rate; cm10 Site: right forearm; 11:35 Follow up: Response: No adverse reaction; IV Status: Completed infusion; IV Intake: [id number] 14:03 Drug: Nicoderm CQ Transdermal Patch 21 mg/24 hr 1 patches Transdermal once Route: cm10 Transdermal; Site: affected area; 14:57 Follow up: Response: No adverse reaction cm10 14:04 Drug: NS 0.9% IV 1000 ml IV at 1 bolus Per protocol; to be given as a bolus over 60 cm10 minutes Route: IV; Rate: 1 bolus; Site: right forearm; 14:57 Follow up: Response: No adverse reaction; IV Status: Completed infusion; IV Intake: cm10 1000ml Medication: 14:32 VIS not applicable for this client. cm10 Intake: 11:35 IV: 1000ml; Total: 1000ml. cm10 11:35 IV: 10ml; Total: 1010ml. cm10 14:57 IV: 1000ml; Total: 2010ml. cm10 Outcome: 12:41 Decision to Hospitalize by Provider. ms3 14:32 Admitted to ICU accompanied by nurse, via stretcher, room 4, on monitor, Report called cm10 to JAE Charles 14:32 Condition: stable 14:32 Instructed on the need for admit, 15:21 Patient left the ED. cm10 Signatures: Dustin Bah, RN RN jl7 Damien Lopez DO DO ms3 Jana Mabry, RN RN Toya Reynolds RN RN cm10 Duyen Ramírez al6 Corrections: (The following items were deleted from the chart) 10:18 10:16 Allergies: Ativan (diarrhea); jl7 jl7 11:56 11:56 BP 131 / 75; Pulse 113bpm; Resp 18bpm; Pulse Ox 91%; cm10 cm10
[2024-06-14] MEDS ORDERED: ONDANSETRON 4 MG/2 ML VIAL IV PRN (12:57)
[2024-06-14] MEDS ORDERED: FLUMAZENIL 0.1 MG/ML (5 mL VIAL) IV PRN (12:57)
[2024-06-14] MEDS: LORazepam 2 MG/ML VIAL IV SCH (13:00)
--- NOTE | 2024-06-14 13:28 | P.HP ---
Certification for Inpatient Patient admitted to: Inpatient With expected LOS: >2 Midnights Patient will require the following post-hospital care: None Practitioner: I am a practitioner with admitting privileges, knowledge of patient current condition, hospital course, and medical plan of care. Services: Services provided to patient in accordance with Admission requirements found in Title 42 Section 412.3 of the Code of Federal Regulations Patient History Date of Service: 06/14/24 Reason for admission: Acute alcohol withdrawal History of Present Illness: 38-year-old male with history of insulin-dependent diabetes, hypertension, hyperlipidemia, alcohol dependence presents to the emergency department with chief complaint of alcohol withdrawal symptoms. He typically drinks around 750 mL of vodka daily, sometimes 1500 mL or more, he also drinks wine in addition. His last drink was early this morning, he presents with tachycardia, hypertension, tremors. He reports he has had hallucinations in the past with previous bouts of alcohol withdrawal but not during this episode so far. He has never been intubated and typically when admitted for alcohol withdrawal he is only in the hospital for couple days. His labs were significant for an AST of 65 ALT of 122 CPK of 670 lipase 155 alcohol level 195 He was given IV benzodiazepines his heart rate is still around 120 with some anxiety, patient will be admitted for alcohol withdrawals. He will be admitted to the ICU given the possibility of significant clinical deterioration in the next 24 hours Allergies No Known Allergies Allergy (Verified 02/21/14 15:00) Home Medications: Esomeprazole Mag Trihydrate [Nexium] 40 mg PO DAILY 02/21/14 Montelukast [Singulair*] 10 mg PO DAILY 02/21/14 Amlodipine Besylate 5 mg PO DAILY 08/04/19 Duloxetine HCl 60 mg PO DAILY 08/04/19 Insulin Glargine,Hum.rec.anlog [Lantus Solostar] 20 units SQ BID 08/04/19 Losartan Potassium 50 mg PO DAILY 08/04/19 Metformin HCl [Glucophage*] 500 mg PO DAILY 08/04/19 Metoprolol Succinate [Toprol Xl*] 25 mg PO BID 08/04/19 ARIPiprazole [Aripiprazole] 5 mg PO DAILY 06/11/22 Anastrozole [Arimidex*] 1 mg PO SEECOM 06/11/22 Atorvastatin Calcium [Lipitor] 40 mg PO BEDTIME 06/11/22 Prazosin HCl 2 mg PO BEDTIME 06/11/22 hydrOXYzine HCL [Atarax*] 25 mg PO DAILY 06/11/22 LORazepam [Ativan] 1 mg PO TID #40 tab 06/12/22 Metoprolol Tartrate [Lopressor*] 50 mg PO BID 6AM 6PM #60 tab 06/12/22 Multivit,Ther Iron,Ca,FA & Min [Centrum Tablet*] 1 tab PO DAILY #30 tab 06/12/22 Thiamine HCl [Vitamin B-1*] 100 mg PO DAILY #30 tab 06/12/22 - Past Medical/Surgical History Diabetic: Yes -: Hypertension -: Type 2 Diabetes, Insulin Dependent -: Alcohol Abuse -: GERD -: Hyperlipidemia -: Facial reconstruction Psychosocial/ Personal History: Patient is . - Social History Smoking Status: Current every day smoker Alcohol use: Yes CD- Drugs: No Caffeine use: Yes Place of Residence: Home Review of Systems 10-point ROS is otherwise unremarkable General: Malaise, Other (anxious) Physical Examination - Physical Exam General: Alert, In no apparent distress, Oriented x3 HEENT: Atraumatic, PERRLA Neck: Supple, 2+ carotid pulse no bruit, No LAD Respiratory: Clear to auscultation bilaterally, Normal air movement Cardiovascular: Regular rate/rhythm, Normal S1 S2 Gastrointestinal: Normal bowel sounds, No tenderness Musculoskeletal: No tenderness Integumentary: No rashes Neurological: Normal gait, Normal speech, Normal strength at 5/5 x4 extr - Studies Laboratory Data (last 24 hrs) 06/14/24 06/14/24 10:33 10:33 WBC 6.00 Hgb 15.4 Hct 44.8 Plt Count 270 Sodium 134 L Potassium 3.8 BUN 14 Creatinine 1.00 Glucose 159 H Total Bilirubin 0.4 AST 65 H ALT 122 H Alkaline Phosphatase 96 Lipase 155 H Assessment and Plan - Plan Assessment: Acute alcohol withdrawal Alcohol use disorder Diabetes mellitus type 2insulin-dependent Hypertension Hyperlipidemia Plan: Acute alcohol withdrawal Alcohol use disorder Typically drinks around 750 mL or more daily of vodka Last drink early this morning around 7 AM Ativan scheduled and as needed Admit to ICU given risk of significant clinical deterioration Diabetes mellitus type 2insulin-dependent ACHS Accu-Chek, sliding scale insulin Takes 20 units of Lantus twice daily at home Will start with 10 units twice daily Hypertension Hyperlipidemia Continue home medications when verified DVT PPX: Lovenox Code status: Full Discharge Plan: Home Plan to discharge in: 48 Hours - Advance Directives Does patient have a Living Will: No Does patient have a Durable POA for Healthcare: No - Code Status/Comfort Care Code Status Assessed: Yes (Full code) Critical Care: No Time Spent Managing Pts Care (In Minutes): 70
[2024-06-14] MEDS ORDERED: NICOTINE 21 MG/PAT TD ONE (14:00)
[2024-06-14] MEDS: NA CHLORIDE 0.9% 1,000 ML IV SCH (15:58)
[2024-06-14] MEDS: INSULIN REGULAR (HUMAN) 100 UNIT/ML SQ SCH (16:30)
[2024-06-14] MEDS: METOPROLOL TAR 25 MG TAB PO SCH (18:22)
[2024-06-14 18:37] LABS: Specific Gravity 1.023 (1.005-1.030); Urine Bilirubin NEGATIVE (Negative); Urine Blood Negative (Negative); Urine Clarity Clear (Clear); Urine Color Light-Yellow (Yellow); Urine Glucose 4+ (Over) (Negative); Urine Ketones 1+ (Negative); Urine Microscopic Reflex YN NO UMIC; Urine Nitrite NEGATIVE (Negative); Urine Protein NEGATIVE (Negative); Urine Urobilinogen Normal (Normal); Urine pH 6.5 (5.0-7.0)
[2024-06-14] MEDS: ATORVASTATIN 40 MG TAB PO SCH (20:54)
[2024-06-14] MEDS: INSULIN GLARGINE 100 UNIT/ML SQ SCH (20:54)
[2024-06-14] MEDS: PRAZOSIN HCL 1 MG CAP PO SCH (20:58)
[2024-06-14] MEDS ORDERED: HOME MED 1 EA UNK (Prazosin Hcl [Prazosin Hcl] 2 MG Capsule) PO SCH (21:00)
[2024-06-15 07:22] LABS: Absolute Basophils 0.1 K/uL (0-0.5); Absolute Eosinophils 0.3 K/uL (0-0.5); Absolute Lymphocytes (CBC) 1.3 K/uL (0.7-4.9); Absolute Monocytes 0.7 K/uL (0.1-1.3); Absolute Neutrophil 4.1 K/uL (1.8-8.0); Basophils % 1.1 % (0-1.3); Eosinophils % 4.4 % (0-4.4); Hematocrit 44.4 % (39.6-49.0); Hemoglobin 14.9 g/dL (13.6-17.9); Lymphocytes % 20.1 % (15.3-44.8); MCH 28.8 pg (27.0-35.0); MCHC 33.6 g/dL (32.0-36.0); MCV 85.7 fL (80-100); MPV 7.2 fL (7.6-11.3); Monocytes % 10.8 % (3.3-12.3); Neutrophils % 63.6 % (41.7-73.7); Platelets 224 thou/uL (152-406); RBC Red Blood Cell Count 5.18 M/uL (4.33-5.43); Red Cell Distribution Width 16.3 % (12.1-15.2)
[2024-06-15 07:42] LABS: Albumin 3.2 g/dL (3.4-5.0); Albumin/Globulin Ratio 0.9 (1.1-1.8); Anion Gap 9.4 mEq/L (5.0-15.0); Bilirubin Total 0.9 mg/dL (0.2-1.0); Globulin 3.4 g/dL (2.3-3.5); Magnesium 1.9 mg/dL (1.6-2.4); Potassium 3.4 mEq/L (3.5-5.1); Protein, Total 6.6 g/dL (6.4-8.2)
[2024-06-15] MEDS: FOLIC ACID 1 MG, MULTIVITAMINS INJ 10 ML, THIAMINE HCL 100 MG in NA CHLORIDE 0.9% 1,000 ML IV SCH (08:37)
[2024-06-15] MEDS: ENOXAPARIN 40 MG/0.4 ML SQ SCH (08:39)
[2024-06-15] MEDS: METFORMIN HCL 500 MG TAB PO SCH (08:39)
[2024-06-15] MEDS: LOSARTAN POTASSIUM 50 MG TABLET PO SCH (08:39)
[2024-06-15] MEDS: BUSPIRONE HCL 15 MG TABLET PO PRN (08:40)
[2024-06-15] MEDS: PANTOPRAZOLE 40MG TABLET PO SCH (08:40)
[2024-06-15] MEDS: MONTELUKAST 10 MG TAB PO SCH (08:40)
[2024-06-15] MEDS: DOCUSATE NA 100 MG CAP PO SCH (08:40)
[2024-06-15] MEDS: AMLODIPINE 10 MG TAB PO SCH (08:40)
[2024-06-15] MEDS: ARIPiprazole 5 MG TAB PO SCH (08:40)
[2024-06-15] MEDS: NICOTINE 21 MG/PAT TD SCH (08:41)
[2024-06-15] MEDS: DULOXETINE 30 MG CAP PO SCH (08:41)
[2024-06-15] MEDS ORDERED: HOME MED 1 EA UNK (Omeprazole [Omeprazole] 20 MG Tablet.Dr) PO SCH (09:00)
[2024-06-15] MEDS ORDERED: HOME MED 1 EA UNK (Duloxetine Hcl [Duloxetine Hcl] 60 MG Capsule.Dr) PO SCH (09:00)
--- NOTE | 2024-06-15 09:10 | P.PN ---
Date of Service: 06/15/24 Subjective: No acute events overnight Drowsy this morning with Ativan ROS: 10 point ROS as noted above, otherwise negative Physical exam GEN: Drowsy, oriented, NAD HEENT: Normal conjunctiva, sclera anicteric CV: Regular rate and rhythm, no edema Pulm: Nonlabored respirations on room air ABD: Soft, nontender, nondistended MSK: No joint tenderness Integumentary: No rashes Neuro: Normal speech, normal affect Assessment: Acute alcohol withdrawal Alcohol use disorder Diabetes mellitus type 2insulin-dependent Hypertension Hyperlipidemia Plan: Acute alcohol withdrawal Alcohol use disorder Typically drinks around 750 mL or more daily of vodka Last drink 06/14 7 AM Ativan scheduled and as needed Admit to ICU given risk of significant clinical deterioration Continue to monitor in ICU today If doing well consider switching from Ativan to Librium p.o. Diabetes mellitus type 2insulin-dependent ACHS Accu-Chek, sliding scale insulin Takes 20 units of Lantus twice daily at home Will start with 10 units twice daily Hypertension Hyperlipidemia Continue home medications when verified DVT PPX: Lovenox Code status: Full Discharge Plan: Home Plan to discharge in: 48 Hours Time Spent Managing Pts Care (In Minutes): 35
[2024-06-15] MEDS: POTASSIUM CL SA 10 MEQ TAB PO ONE (12:53)
[2024-06-15] MEDS: POTASSIUM PHOS IN 0.9 % NACL 15 MMOL/250 ML BAG IV ONE (12:53)
[2024-06-15] MEDS: LORazepam 2 MG/ML VIAL IV PRN ×2 (14:04→16:58)
[2024-06-15] MEDS: chlordiazePOXIDE HCl 25 MG CAP PO ONE (15:57)
[2024-06-15 16:09] VITALS: BMI 34.7
[2024-06-15] MEDS: LORazepam 2 MG/ML VIAL IV ONE (17:34)
[2024-06-15] MEDS: chlordiazePOXIDE HCl 25 MG CAP PO SCH (18:02)
[2024-06-15] MEDS ORDERED: chlordiazePOXIDE HCl 25 MG CAP PO SCH (19:00)
[2024-06-15] MEDS: DEXMEDETOMIDINE HCL 1,000 MCG in NA CHLORIDE 0.9% 490 ML IV SCH (19:29)
[2024-06-16 05:55] LABS: Absolute Basophils 0.1 K/uL (0-0.5); Absolute Eosinophils 0.3 K/uL (0-0.5); Absolute Lymphocytes (CBC) 1.7 K/uL (0.7-4.9); Absolute Monocytes 0.8 K/uL (0.1-1.3); Absolute Neutrophil 3.4 K/uL (1.8-8.0); Basophils % 1.2 % (0-1.3); Eosinophils % 4.8 % (0-4.4); Hematocrit 44.2 % (39.6-49.0); Hemoglobin 14.9 g/dL (13.6-17.9); Lymphocytes % 27.5 % (15.3-44.8); MCH 29.1 pg (27.0-35.0); MCHC 33.6 g/dL (32.0-36.0); MCV 86.5 fL (80-100); MPV 7.3 fL (7.6-11.3); Monocytes % 12.8 % (3.3-12.3); Neutrophils % 53.7 % (41.7-73.7); Platelets 241 thou/uL (152-406); RBC Red Blood Cell Count 5.11 M/uL (4.33-5.43)
[2024-06-16 06:06] LABS: Albumin 3.4 g/dL (3.4-5.0); Albumin/Globulin Ratio 0.9 (1.1-1.8); Anion Gap 9.9 mEq/L (5.0-15.0); Bilirubin Total 0.8 mg/dL (0.2-1.0); Globulin 3.6 g/dL (2.3-3.5); Magnesium 2.1 mg/dL (1.6-2.4); Phosphorus 2.4 mg/dL (2.5-4.9); Potassium 3.9 mEq/L (3.5-5.1)
--- NOTE | 2024-06-16 09:33 | P.PN ---
Date of Service: 06/16/24 Subjective: Worsening withdrawal symptoms overnight Started on Precedex drip Tolerating Precedex drip well, still with anxiety ROS: 10 point ROS as noted above, otherwise negative Physical exam GEN: Drowsy, oriented, NAD, anxious HEENT: Normal conjunctiva, sclera anicteric CV: Regular rate and rhythm, no edema Pulm: Nonlabored respirations on room air ABD: Soft, nontender, nondistended MSK: No joint tenderness Integumentary: No rashes Neuro: Normal speech, normal affect Assessment: Acute alcohol withdrawal Alcohol use disorder Diabetes mellitus type 2insulin-dependent Hypertension Hyperlipidemia Plan: Acute alcohol withdrawal Alcohol use disorder Typically drinks around 750 mL or more daily of vodka Last drink 06/14 7 AM Had increasing withdrawal symptoms despite p.o. Librium and IV Ativan as needed Started on Precedex drip overnight 06/15 Tolerating Precedex drip well, wean as tolerated Continue ICU level of care for now Diabetes mellitus type 2insulin-dependent ACHS Accu-Chek, sliding scale insulin Takes 20 units of Lantus twice daily at home Will start with 10 units twice daily Hypertension Hyperlipidemia Continue home medications when verified DVT PPX: Lovenox Code status: Full Discharge Plan: Home Plan to discharge in: 48 Hours Time Spent Managing Pts Care (In Minutes): 35
[2024-06-16 09:41] VITALS: O2SAT 98
[2024-06-16] MEDS: LORazepam 2 MG/ML VIAL IV PRN (11:38)
[2024-06-16 12:21] VITALS: BP 129/93; TEMP 97.7
[2024-06-16] MEDS ORDERED: LORazepam 2 MG/ML VIAL IV SCH (14:00)
--- NOTE | 2024-06-16 15:08 | P.DS ---
Admission Date: 06/14/24 Discharge Date: 06/16/24 Disposition: AMA-LEFT AGAINST MEDICAL ADVIC Discharge Condition: FAIR Reason for Admission: Acute alcohol withdrawal Brief History of Present Illness: 38-year-old male with history of insulin-dependent diabetes, hypertension, hyperlipidemia, alcohol dependence presents to the emergency department with chief complaint of alcohol withdrawal symptoms. He typically drinks around 750 mL of vodka daily, sometimes 1500 mL or more, he also drinks wine in addition. His last drink was early this morning, he presents with tachycardia, hypertension, tremors. He reports he has had hallucinations in the past with previous bouts of alcohol withdrawal but not during this episode so far. He has never been intubated and typically when admitted for alcohol withdrawal he is only in the hospital for couple days. His labs were significant for an AST of 65 ALT of 122 CPK of 670 lipase 155 alcohol level 195 He was given IV benzodiazepines his heart rate is still around 120 with some anxiety, patient will be admitted for alcohol withdrawals. He will be admitted to the ICU given the possibility of significant clinical deterioration in the next 24 hours Hospital Course: Assessment: Acute alcohol withdrawal Alcohol use disorder Diabetes mellitus type 2insulin-dependent Hypertension Hyperlipidemia Patient was admitted to the hospital for acute alcohol withdrawal. He was treated with benzodiazepines and IV Precedex. During his hospital stay there are some events that took place outside of the hospital that demanded his immed iate attention and he decided to leave the hospital AGAINST MEDICAL ADVICE. He left rather abruptly was unable to come to the bedside before he left, the nurses did speak with him in regards to the risk of leaving AGAINST MEDICAL ADVICE including severe alcohol withdrawal and ultimately seizures or . Vital Signs/Physical Exam: Temp Pulse Resp BP Pulse Ox 97.7 F 82 20 129/93 H 96 06/16/24 12:00 06/16/24 12:00 06/16/24 12:00 06/16/24 12:00 06/16/24 12:00 General: Alert, In no apparent distress, Oriented x3 HEENT: Atraumatic, PERRLA Neck: Supple, JVD not distended Respiratory: Clear to auscultation bilaterally, Normal air movement Cardiovascular: Regular rate/rhythm, Normal S1 S2 Gastrointestinal: Normal bowel sounds, No tenderness Musculoskeletal: No tenderness Neurological: Normal speech, Normal tone, Normal affect Laboratory Data at Discharge: WBC 6.30 thou/uL (4.3-10.9) 06/16/24 05:30 Hgb 14.9 g/dL (13.6-17.9) 06/16/24 05:30 Hct 44.2 % (39.6-49.0) 06/16/24 05:30 Plt Count 241 thou/uL (152-406) 06/16/24 05:30 Sodium 137 mEq/L (136-145) 06/16/24 05:30 Potassium 3.9 mEq/L (3.5-5.1) D 06/16/24 05:30 BUN 8 mg/dL (7-18) 06/16/24 05:30 Creatinine 0.85 mg/dL (0.70-1.30) 06/16/24 05:30 Glucose 140 mg/dL (74-106) H 06/16/24 05:30 Phosphorus 2.4 mg/dL (2.5-4.9) L 06/16/24 05:30 Magnesium 2.1 mg/dL (1.6-2.4) 06/16/24 05:30 Total Bilirubin 0.8 mg/dL (0.2-1.0) 06/16/24 05:30 AST 54 U/L (15-37) H 06/16/24 05:30 ALT 112 U/L (16-61) H 06/16/24 05:30 Alkaline Phosphatase 96 U/L (45-117) 06/16/24 05:30 Lipase 155 U/L (13-75) H 06/14/24 10:33 Home Medications: Montelukast [Singulair*] 10 mg PO DAILY 02/21/14 Amlodipine Besylate 10 mg PO DAILY 08/04/19 Duloxetine HCl 60 mg PO DAILY 08/04/19 Insulin Glargine,Hum.rec.anlog [Lantus Solostar] 20 units SQ BID 08/04/19 Losartan Potassium 50 mg PO DAILY 08/04/19 Metformin HCl [Glucophage*] 1,000 mg PO DAILY 08/04/19 ARIPiprazole [Aripiprazole] 10 mg PO DAILY 06/11/22 Atorvastatin Calcium [Lipitor] 40 mg PO BEDTIME 06/11/22 Prazosin HCl 2 mg PO BEDTIME 06/11/22 hydrOXYzine HCL [Atarax*] 25 mg PO BID 06/11/22 Buspirone HCl 15 mg PO BID PRN 06/14/24 Docusate Sodium 100 mg PO DAILY 06/14/24 Empagliflozin [Jardiance] 25 mg PO DAILY 06/14/24 Metoprolol Tartrate [Lopressor*] 25 mg PO BID 6AM 6PM 06/14/24 Naproxen 375 mg PO BID PRN 06/14/24 Omeprazole 40 mg PO DAILY 06/14/24 Physician Discharge Instructions: Patient was admitted to the hospital for acute alcohol withdrawal. He was treated with benzodiazepines and IV Precedex. During his hospital stay there are some events that took place outside of the hospital that demanded his immediate attention and he decided to leave the hospital AGAINST MEDICAL ADVICE. He left rather abruptly was unable to come to the bedside before he left, the nurses did speak with him in regards to the risk of leaving AGAINST MEDICAL ADVICE including severe alcohol withdrawal and ultimately seizures or . Followup: NONE,NONE [Primary Care Provider] - Time spent managing pt's care (in minutes): 30
[2024-06-16] MEDS ORDERED: chlordiazePOXIDE HCl 25 MG CAP PO SCH (19:00)
== END 2024-06-16 14:51 | disposition left against medical advice (07) | DRG 894 ==
LOC: ER 10:00 → ERHOLD 12:56 → 3RD-ICU 14:50
PROVIDERS: ADMIT Hospitalist; ATTEND Hospitalist
DX: F10.239 Alcohol dependence with withdrawal, unspecified (principal); I10 Essential (primary) hypertension; F41.9 Anxiety disorder, unspecified; E11.9 Type 2 diabetes mellitus without complications; K21.9 Gastro-esophageal reflux disease without esophagitis; E78.00 Pure hypercholesterolemia, unspecified; F17.210 Nicotine dependence, cigarettes, uncomplicated; Z79.4 Long term (current) use of insulin; Z53.29 Procedure and treatment not carried out because of patient's decision for other reasons; Z79.84 Long term (current) use of oral hypoglycemic drugs; Z79.899 Other long term (current) drug therapy; Y90.6 Blood alcohol level of 120-199 mg/100 ml
CPT/HCPCS: 36415; 80053; 81003; 82077; 82550; 82947; 83605; 83690; 83735; 84100; 85025; 96361; 96365; 96375; 99285; J1650; J3411; J7030; J7040

== ENCOUNTER 2024-10-15 13:14 | Inpatient (IN) | payer OTHER ==
[2024-10-15] MEDS ORDERED: FAMOTIDINE 20 MG/2 ML VIAL IV ONE (14:39)
[2024-10-15] MEDS ORDERED: NA CHLORIDE 0.9% 1,000 ML ONE ×3 (14:39→21:39)
[2024-10-15] MEDS ORDERED: LORazepam 2 MG/ML VIAL ONE ×3 (14:48→21:38)
[2024-10-15 14:50] LABS: Absolute Lymphocytes (CBC) 1.6 K/uL (0.7-4.9); Hematocrit 50.8 % (39.6-49.0); Hemoglobin 17.2 g/dL (13.6-17.9); MCH 28.6 pg (27.0-35.0); MCHC 33.9 g/dL (32.0-36.0); MCV 84.4 fL (80-100); MPV 7.2 fL (7.6-11.3); Nucleated RBC Absolute Count 0.0 (0-0); Nucleated Red Blood Cells % 0.1 % (0-0); RBC Red Blood Cell Count 6.02 M/uL (4.33-5.43); White Blood Count 6.80 thou/uL (4.3-10.9)
[2024-10-15 15:17] LABS: PT Prothrombin Time 10.4 SECONDS (10-13.0); PTT, Activated Partial Thromb 31.2 SECONDS (27.2-37.4); Protime INR 0.92
[2024-10-15 15:27] LABS: ALT/SGPT 149.0 U/L (16-61); AST/SGOT 75.0 U/L (15-37); Albumin 3.7 g/dL (3.4-5.0); Albumin/Globulin Ratio 0.9 (1.1-1.8); Alkaline Phosphatase 110.0 U/L (45-117); Anion Gap 14.1 mEq/L (5.0-15.0); BUN Blood Urea Nitrogen 7.0 mg/dL (7-18); Globulin 4.0 g/dL (2.3-3.5); Glucose Level 148.0 mg/dL (74-106); Lipase 105.0 U/L (13-75); Potassium 4.1 mEq/L (3.5-5.1)
[2024-10-15 15:36] LABS: Sqamous Epithelial None Seen /HPF (None Seen); Urine Micro Reflex YN NO BILL MICROSCOPIC; Urine Yeast (Budding) Trace /HPF (None Seen)
[2024-10-15] MEDS ORDERED: DIAZEPAM 10 MG/2 ML INJ SYRINGE ONE (17:03)
--- NOTE | 2024-10-15 17:16 | P.HP ---
Certification for Inpatient Patient admitted to: Inpatient With expected LOS: >2 Midnights <Kayy Gregorio - Last Filed: 10/15/24 18:40> Patient History Date of Service: 10/15/24 Reason for admission: Alcohol withdrawal History of Present Illness: Cristiano Bob is a 38-year-old male with past medical history of hypertension, hyperlipidemia, diabetes mellitusIDDM, chronic alcohol abuse/dependence who presents to the ED with alcohol withdrawal symptoms such as tachycardia. Typically drinking bottles of wine daily replacing his vodka habit. While in the ED he was given benzodiazepines to can help control heart rates to no avail. Patient was admitted in June with same diagnosis. Laboratory evaluation significant for serum glucose 148, AST 75, ALT of 149, lipase 105, serum alcohol 117. Cristiano will be admitted to hospitalist service for further treatment of alcohol withdrawal. - Past Medical/Surgical History Diabetic: Yes -: Hypertension -: Type 2 Diabetes, Insulin Dependent -: Alcohol Abuse -: GERD -: Hyperlipidemia -: Facial reconstruction Psychosocial/ Personal History: Patient is . - Social History Smoking Status: Current every day smoker Alcohol use: Yes CD- Drugs: No Caffeine use: Yes <Kayy Gregorio - Last Filed: 10/15/24 18:40> Date of Service: 10/16/24 <Viktoriya Wise - Last Filed: 10/16/24 06:32> Allergies No Known Allergies Allergy (Verified 02/21/14 15:00) Home Medications: Montelukast [Singulair*] 10 mg PO DAILY 02/21/14 Amlodipine Besylate 10 mg PO DAILY 08/04/19 Duloxetine HCl 60 mg PO DAILY 08/04/19 Insulin Glargine,Hum.rec.anlog [Lantus Solostar] 20 units SQ BID 08/04/19 Losartan Potassium 50 mg PO DAILY 08/04/19 Metformin HCl [Glucophage*] 1,000 mg PO DAILY 08/04/19 ARIPiprazole [Aripiprazole] 10 mg PO DAILY 06/11/22 Atorvastatin Calcium [Lipitor] 40 mg PO BEDTIME 06/11/22 Prazosin HCl 2 mg PO BEDTIME 06/11/22 hydrOXYzine HCL [Atarax*] 25 mg PO BID 06/11/22 Buspirone HCl 15 mg PO BID PRN 06/14/24 Docusate Sodium 100 mg PO DAILY 06/14/24 Empagliflozin [Jardiance] 25 mg PO DAILY 06/14/24 Metoprolol Tartrate [Lopressor*] 25 mg PO BID 6AM 6PM 06/14/24 Naproxen 375 mg PO BID PRN 06/14/24 Omeprazole 40 mg PO DAILY 06/14/24 Review of Systems Other: Per HPI <Kayy Gregorio - Last Filed: 10/15/24 18:40> Physical Examination - Physical Exam General: Alert, Oriented x3 HEENT: Atraumatic, Normocephalic Neck: Supple, 2+ carotid pulse no bruit Respiratory: Clear to auscultation bilaterally, Normal air movement Cardiovascular: Normal pulses, Irregular heart rate/rhythm (sinus tachycardia) Gastrointestinal: Normal bowel sounds, Soft and benign, Distended (obese) Musculoskeletal: No clubbing Integumentary: No rashes Neurological: Normal speech, Normal tone, Other (mild aggitation) - Studies Laboratory Data (last 24 hrs) 10/15/24 10/15/24 10/15/24 14:38 14:38 14:38 WBC 6.80 Hgb 17.2 Hct 50.8 H Plt Count 198 PT 10.4 INR 0.92 APTT 31.2 Sodium 138 Potassium 4.1 BUN 7 Creatinine 0.97 Glucose 148 H Total Bilirubin 0.4 AST 75 H ALT 149 H Alkaline Phosphatase 110 Lipase 105 H <Kayy Gregorio - Last Filed: 10/15/24 18:40> - Studies Laboratory Data (last 24 hrs) 10/15/24 10/15/24 10/15/24 14:38 14:38 14:38 WBC 6.80 Hgb 17.2 Hct 50.8 H Plt Count 198 PT 10.4 INR 0.92 APTT 31.2 Sodium 138 Potassium 4.1 BUN 7 Creatinine 0.97 Glucose 148 H Total Bilirubin 0.4 AST 75 H ALT 149 H Alkaline Phosphatase 110 Lipase 105 H <Viktoriya Wise - Last Filed: 10/16/24 06:32> Assessment and Plan - Plan Assessment and plan Acute alcohol withdrawal Alcohol dependence/use disorder Tachycardia Typically drinks 4 bottles of wine daily Ativan PRN Scheduled Librium IVF Folic acid, Thiamin, multivitamin CIWA 8 Admit to ICU given risk of significant clinical deterioration Alcohol cessation education provided Diabetes mellitus type 2insulin-dependent ACHS Accu-Chek, sliding scale insulin Semglee 10 units at bedtime Serum glucose 148 Hypertension Hyperlipidemia GERD Continue home medications when verified Smoking abuse Smoking cessation education provided DVT ppx lovenox Full code LOS 2 days Discharge Plan: Home Plan to discharge in: 48 Hours - Advance Directives Does patient have a Living Will: No Does patient have a Durable POA for Healthcare: No Time Spent Managing Pts Care (In Minutes): 60 <Kayy Gregorio - Last Filed: 10/15/24 18:40> Physician Review: Patient Assessed, Agree with Above Assessment and Plan <Viktoriya Wise - Last Filed: 10/16/24 06:32>
--- NOTE | 2024-10-15 17:36 | ER ---
Nurse's Notes [facility] Name: Cristiano Bob Age: 38 yrs Sex: Male : 1985 Arrival Date: 10/15/2024 Time: 13:14 Bed 19 Private MD: Diagnosis: Alcohol dependence with withdrawal Presentation: 10/15 13:45 Chief complaint: EMS states: "HE NORMALLY DRINKS 4 BOTTLES OF WINE A DAY, TODAY HE ONLY bp DRANK TWO.". Coronavirus screen: At this time, the client does not indicate any symptoms associated with coronavirus-19. Ebola Screen: No symptoms or risks identified at this time. Initial Sepsis Screen: Does the patient meet any 2 criteria? HR > 90 bpm. No. Patient's initial sepsis screen is negative. Does the patient have a suspected source of infection? No. Patient's initial sepsis screen is negative. Risk Assessment: Do you want to hurt yourself or someone else? Patient reports no desire to harm self or others. Onset of symptoms is unknown. Care prior to arrival: Medication(s) given: zofran 4 mg, IV initiated. 20 GA, in the left antecubital area. 13:45 Method Of Arrival: [facility] bp 13:45 Acuity: ROLY 2 bp Triage Assessment: 13:46 General: Appears in no apparent distress. Behavior is cooperative, appropriate for age, bp anxious. Pain: Denies pain. EENT: No deficits noted. Neuro: Level of Consciousness is awake, alert, obeys commands, Oriented to Appropriate for age. Cardiovascular: Rhythm is sinus tachycardia. Respiratory: No deficits noted. GI: Reports nausea, vomiting. : No signs and/or symptoms were reported regarding the genitourinary system. Derm: No deficits noted. Musculoskeletal: No deficits noted. Historical: - Allergies: 13:46 No Known Allergies; bp - PMHx: 13:46 acid reflux; Alcoholism; Hypercholesterolemia; Hypertension; Prediabetic; bp - PSHx: 13:46 facial reconstruction; bp - Immunization history:: Adult Immunizations. - Infectious Disease History:: Denies. Denies. - Social history:: Smoking status: unknown. - History obtained from: EMS. Screenin:48 [facility] ED Fall Risk Assessment (Adult) History of falling in the last 3 months, bp including since admission No falls in past 3 months (0 pts) Confusion or Disorientation No (0 pts) Intoxicated or Sedated No (0 pts) Impaired Gait No (0 pts) Mobility Assist Device Used No (0 pt) Altered Elimination No (0 pt) Score/Fall Risk Level 0 - 2 = Low Risk Oriented to surroundings. Abuse screen: Denies threats or abuse. Denies injuries from another. Nutritional screening: No deficits noted. Tuberculosis screening: No symptoms or risk factors identified. 23:16 [facility] [place] Withdrawal Assessment for Alcohol, revised (CIWA-Ar): ss12 Nausea/Vomitin - No nausea or vomiting Headache: 1 - Very mild Paroxysmal Sweats: 0 - No sweats visible Anxiety: 0 - No anxiety, at ease Agitation: 0 - Normal actiivty Tremor: 1 - Not visible, but can be felt at fingertips Auditory Disturbances: 0 - Not present Visual Disturbances: 0 - Not present Tactile Disturbances: 0 - None Orientation and Clouding of Sensorium: 0 - Oriented and can do serial additions. Assessment: 13:48 General: SEE TRIAGE NOTE. bp 17:00 Reassessment: No changes from previously documented assessment. Patient is alert, bp oriented x 3, equal unlabored respirations, skin warm/dry/pink. 18:30 Reassessment: DISPO PENDING PT D/C [facility]. bp 19:00 Reassessment: Patient appears in no apparent distress at this time. Patient and/or ss12 family updated on plan of care and expected duration. Pain level reassessed. Patient is alert, oriented x 3, equal unlabored respirations, skin warm/dry/pink. 20:25 Reassessment: Patient appears in no apparent distress at this time. No changes from ss12 previously documented assessment. Patient is alert, oriented x 3, equal unlabored respirations, skin warm/dry/pink. 21:11 Reassessment: Patient appears in no apparent distress at this time. Patient and/or ss12 family updated on plan of care and expected duration. Pain level reassessed. Patient is alert, oriented x 3, equal unlabored respirations, skin warm/dry/pink. 22:30 Reassessment: Patient appears in no apparent distress at this time. Patient and/or ss12 family updated on plan of care and expected duration. Pain level reassessed. Patient is alert, oriented x 3, equal unlabored respirations, skin warm/dry/pink. 23:15 Reassessment: Patient appears in no apparent distress at this time. Patient and/or ss12 family updated on plan of care and expected duration. Pain level reassessed. Patient is alert, oriented x 3, equal unlabored respirations, skin warm/dry/pink. Vital Signs: 13:45 BP 147 / 101; Pulse 132; Resp 20; Temp 98; Pulse Ox 95% ; bp 15:06 BP 141 / 80; Pulse 124; Resp 26; Pulse Ox 93% ; bp 17:00 BP 120 / 88; Pulse 127; Resp 26; Pulse Ox 94% ; bp 19:00 BP 145 / 92; Pulse 127; Resp 18 S; Pulse Ox 97% on R/A; ss12 20:30 BP 158 / 106; Pulse 128; Resp 18; Pulse Ox 96% ; ss12 21:15 BP 149 / 110; Pulse 126; Resp 18 S; Pulse Ox 96% on R/A; ss12 22:30 BP 145 / 103; Pulse 90; Resp 18; Pulse Ox 99% ; ss12 ED Course: 13:44 Patient arrived in ED. bp 13:46 Triage completed. bp 13:46 Arm band placed on. bp 13:47 Estrella Winston MD is Attending Physician. sw6 13:48 Patient has correct armband on for positive identification. bp 13:48 Maintain EMS IV. Dressing intact. Good blood return noted. Site clean \\T\\ dry. Gauge \\T\\ bp site: 20 LAC. Flushed with 10 mL NS. 13:49 Bacilio Gonsales, RN is Primary Nurse. bp 14:42 Lipase Sent. em1 14:42 CMP Sent. em1 14:42 CBC with Diff Sent. em1 14:42 Alcohol Level Sent. em1 14:42 PT-INR Sent. em1 14:42 Ptt, Activated Sent. em1 17:35 Viktoriya Wise MD is Hospitalizing Provider. sw6 19:13 [facility] faxed clinical's. spoke with Estrella. kmf 21:12 [facility] notify. [id number]. kmf 21:31 Attending Physician role handed off by Estrella Winston MD ms3 21:31 Damien Lopez DO is Attending Physician. ms3 23:33 Provided Education on: plan of care. ss12 23:33 No provider procedures requiring assistance completed. ss12 23:34 Patient transferred, IV remains in place. ss12 10/16 00:31 [facility]. Do \\T\\[id number]. Admin Estrella Zimmerman \\T\\[id number]. f Number for nurse to nurse report [phone]. [place] [facility] to transfer pt. Administered Medications: 10/15 14:30 Drug: Famotidine IVP 20 mg IVP once; dilute with 10 mL 0.9% NaCl; give over 2 minutes bp Route: IVP; Site: left antecubital; 14:30 Drug: NS 0.9% IV 1000 ml IV at 1 bolus Per protocol; to be given as a bolus over 60 bp minutes Route: IV; Rate: 1 bolus; Site: left antecubital; 14:58 Not Given (Other Intervention Used): [id number] mg IVPB once bp 14:58 Drug: Ativan IVP 2 mg IVP once Route: IVP; Site: left antecubital; bp 23:36 Follow up: Response: No adverse reaction ss12 15:59 Drug: Ativan IVP 2 mg IVP once Route: IVP; Site: left antecubital; bp 23:36 Follow up: Response: No adverse reaction ss12 15:59 Drug: NS 0.9% IV 1000 ml IV at 1000 ml once; to be given as a bolus over 60 minutes bp Route: IV; Rate: 1000 ml; Site: left antecubital; 17:09 Drug: Diazepam IVP 5 mg IVP once Route: IVP; Site: left antecubital; bp 23:35 Follow up: Response: No adverse reaction 12 21:40 Drug: Banana Bag - (Multivitamin IV 1 amp, NS 0.9% IV 1000 ml, Thiamine IV 100 mg, ss12 foLIC Acid IVPB 1 mg) IV at calculated rate once Route: IV; Rate: calculated rate; Site: left antecubital; 21:40 Drug: Ativan IVP 1 mg IVP once Route: IVP; Site: left antecubital; ss12 23:35 Follow up: Response: No adverse reaction; Anxiety decreased ss12 Medication: 13:48 VIS not applicable for this client. bp Outcome: 17:35 Decision to Hospitalize by Provider. 6 22:29 ER care complete, transfer ordered by MD. portillo 23:33 Transferred by ground EMS to [place] [id number] 23:33 Condition: stable 23:33 Discharge instructions given to EMS, 23:34 Patient left the ED. ss12 Signatures: Ryan Palma em1 Bacilio Gonsales, RN RN bp Damien Lopez, DO CAMP ms3 Yesenia Valenzuela RN RN vc1 Rachna Goodrich [facility] Estrella Winston MD MD sw6 Ximena Bueno RN RN 12 Corrections: (The following items were deleted from the chart) 21:15 20:25 Pulse 130bpm; Resp 20bpm; Pulse Ox 98%; ss12 ss12
--- NOTE | 2024-10-15 17:36 | EDPHYS ---
Physician Documentation [facility] Name: Cristiano Bob Age: 38 yrs Sex: Male : 1985 Arrival Date: 10/15/2024 Time: 13:14 Bed 19 Private MD: ED Physician Damien Lopez HPI: 10/15 15:44 This 38 yrs old Male presents to ER via EMS with complaints of Alcohol [facility] Withdrawal. 15:44 The patient has not experienced similar symptoms in the past. The patient presents from [address] with [facility] for evaluation for alcohol withdrawal. He reports he normally drinks 4 bottles of wine a day. So far he has only had 2 today. He reports he has been drinking since he was 16 years old and slowly drinking more every day. He has never gone a day that he can recall without drinking alcohol. He reports yesterday he did notice some blood in his stool which is what has some concern. He would now like to stop drinking. He had some nausea earlier but was given 4 mg of Zofran by EMS and that has now resolved. No vomiting. No diarrhea. No abdominal pain. He denies any tremors or shakes to his body. No visual hallucinations. He also reports a history of high blood pressure, high cholesterol as well as diabetes and admits to compliance with his medication. He lives at home with his . He reports she does not drink any alcohol or do drugs. Here for evaluation.. 17:36 Onset: The symptoms/episode began/occurred this morning. The patient has not recently [facility] a physician. Historical: - Allergies: 13:46 No Known Allergies; bp - PMHx: 13:46 acid reflux; Alcoholism; Hypercholesterolemia; Hypertension; Prediabetic; bp - PSHx: 13:46 facial reconstruction; bp - Immunization history:: Adult Immunizations. - Infectious Disease History:: Denies. Denies. - Social history:: Smoking status: unknown. - History obtained from: EMS. ROS: 15:44 Constitutional: Negative for fever, chills, and weight loss, Cardiovascular: Negative [facility] for chest pain, palpitations, and edema, Respiratory: Negative for shortness of breath, cough, wheezing, and pleuritic chest pain, Back: Negative for injury and pain, 15:44 Abdomen/GI: Positive for nausea, Negative for vomiting, diarrhea, 15:44 All other systems are negative, Exam: 15:44 Constitutional: This is a well developed, well nourished patient who is awake, alert, sw6 and in no acute distress. Head/Face: Normocephalic, atraumatic. Neck: Trachea midline, no thyromegaly or masses palpated, and no cervical lymphadenopathy. Supple, full range of motion without nuchal rigidity, or vertebral point tenderness. No Meningismus. Chest/axilla: Normal chest wall appearance and motion. Nontender with no deformity. No lesions are appreciated. Respiratory: Lungs have equal breath sounds bilaterally, clear to auscultation and percussion. No rales, rhonchi or wheezes noted. No increased work of breathing, no retractions or nasal flaring. Abdomen/GI: Soft, non-tender, with normal bowel sounds. No distension or tympany. No guarding or rebound. No evidence of tenderness throughout. MS/ Extremity: Pulses equal, no cyanosis. Neurovascular intact. Full, normal range of motion. Neuro: Awake and alert, GCS 15, oriented to person, place, time, and situation. Cranial nerves II-XII grossly intact. Motor strength 5/5 in all extremities. Sensory grossly intact. Cerebellar exam normal. Normal gait. Psych: Awake, alert, with orientation to person, place and time. Behavior, mood, and affect are within normal limits. 15:44 Cardiovascular: Rate: tachycardic, Rhythm: regular, 21:41 ECG was reviewed by the Attending Physician. ms3 Vital Signs: 13:45 BP 147 / 101; Pulse 132; Resp 20; Temp 98; Pulse Ox 95% ; bp 15:06 BP 141 / 80; Pulse 124; Resp 26; Pulse Ox 93% ; bp 17:00 BP 120 / 88; Pulse 127; Resp 26; Pulse Ox 94% ; bp 19:00 BP 145 / 92; Pulse 127; Resp 18 S; Pulse Ox 97% on R/A; ss12 20:30 BP 158 / 106; Pulse 128; Resp 18; Pulse Ox 96% ; ss12 21:15 BP 149 / 110; Pulse 126; Resp 18 S; Pulse Ox 96% on R/A; ss12 22:30 BP 145 / 103; Pulse 90; Resp 18; Pulse Ox 99% ; ss12 MDM: 13:47 Medical Screening Exam initiated sw6 15:44 Differential Diagnosis Alcohol intoxication, alcohol withdrawal. Data reviewed: vital [facility] signs, nurses notes, EMS record. 17:33 Data reviewed: lab test result(s), CBC, drug level(s), alcohol, electrolytes. ED [facility] course: The patient is doing well here in the ER. His heart rate has improved slightly with administration of IV fluids as well as benzodiazepines here in the ER. However he still remains persistently tachycardic despite the above-mentioned treatments. His laboratory studies show he is still intoxicated blood alcohol level of 117. He does require admission for continued management.. 17:33 I considered the following discharge prescriptions or medication management in the [facility] emergency department Initial plan was to give the patient IV phenobarbital for alcohol drawl however that medication is currently not available at this hospital.. 19:00 Consideration of Admission/Observation Patient transferred to the [facility]. Management of ak3 patient was discussed with the following: Dr Huan Esposito at [facility]. Transition of care: Care assumed from Estrella Winston MD. ED course: Doc to doc with Dr Huan Esposito at [facility] completed and he accepts patient. Discussed this with the patient. Patient transferred to [facility] secondary to patient preference secondary to insurance coverage.. 19:00 ED course: Patient signed out by Dr Winston: [facility]; however, secondary to insurance coverage patient wishes to be transferred to the [facility]. Transfer initiated. 10/15 13:51 Order name: CBC with Diff; Complete Time: 15:41 [facility] 10/15 15:41 Interpretation: Within normal limits. [facility] 10/15 13:51 Order name: CMP; Complete Time: 15:41 [facility] 10/15 15:41 Interpretation: Normal except: Hyperglycemia, no DKA. 10/15 13:51 Order name: Lipase; Complete Time: 15:41 [facility] 10/15 15:41 Interpretation: Within normal limits: LIP 105. 10/15 13:51 Order name: Alcohol Level; Complete Time: 16:58 [facility] 10/15 16:58 Interpretation: Abnormal: ETOH 117; Intoxicated. 10/15 13:51 Order name: PT-INR; Complete Time: 15:41 [facility] 10/15 15:41 Interpretation: Within normal limits: INR <p>0.92</p>. 10/15 13:51 Order name: Ptt, Activated; Complete Time: 15:41 6 10/15 15:42 Interpretation: Within normal limits: PTT 31.2. 10/15 13:51 Order name: UA W/ Microscopic; Complete Time: 15:41 10/15 15:41 Interpretation: Within normal limits. 10/15 17:53 Order name: CBC with Automated Diff EDMS 10/15 17:53 Order name: CBC with Automated Diff EDMS 10/15 17:53 Order name: Comprehensive Metabolic Panel EDMS 10/15 17:53 Order name: Comprehensive Metabolic Panel EDMS 10/15 17:53 Order name: Magnesium EDMS 10/15 17:53 Order name: Magnesium EDMS 10/15 17:53 Order name: Phosphorus EDMS 10/15 17:53 Order name: Phosphorus EDMS 10/15 21:47 Order name: Glucose, Ancillary Testing EDMS 10/15 13:51 Order name: EKG; Complete Time: 13:52 10/15 17:53 Order name: Delirium Tremens Prophylaxis-IV Meds EDMS 10/15 13:51 Order name: IV Saline Lock; Complete Time: 14:36 10/15 13:51 Order name: Labs collected and sent; Complete Time: 14:42 10/15 13:51 Order name: Monitor; Complete Time: 14:36 EC:41 Rate is 118 beats/min. Rhythm is regular. QRS [place] is Normal. LA interval is normal. ms3 QRS interval is normal. Clinical impression: Sinus tachycardia. Interpreted by me. Reviewed by me. Administered Medications: 14:30 Drug: Famotidine IVP 20 mg IVP once; dilute with 10 mL 0.9% NaCl; give over 2 minutes bp Route: IVP; Site: left antecubital; 14:30 Drug: NS 0.9% IV 1000 ml IV at 1 bolus Per protocol; to be given as a bolus over 60 bp minutes Route: IV; Rate: 1 bolus; Site: left antecubital; 14:58 Not Given (Other Intervention Used): [id number] mg IVPB once bp 14:58 Drug: Ativan IVP 2 mg IVP once Route: IVP; Site: left antecubital; bp 23:36 Follow up: Response: No adverse reaction ss12 15:59 Drug: Ativan IVP 2 mg IVP once Route: IVP; Site: left antecubital; bp 23:36 Follow up: Response: No adverse reaction ss12 15:59 Drug: NS 0.9% IV 1000 ml IV at 1000 ml once; to be given as a bolus over 60 minutes bp Route: IV; Rate: 1000 ml; Site: left antecubital; 17:09 Drug: Diazepam IVP 5 mg IVP once Route: IVP; Site: left antecubital; bp 23:35 Follow up: Response: No adverse reaction ss12 21:40 Drug: Banana Bag - (Multivitamin IV 1 amp, NS 0.9% IV 1000 ml, Thiamine IV 100 mg, ss12 foLIC Acid IVPB 1 mg) IV at calculated rate once Route: IV; Rate: calculated rate; Site: left antecubital; 21:40 Drug: Ativan IVP 1 mg IVP once Route: IVP; Site: left antecubital; ss12 23:35 Follow up: Response: No adverse reaction; Anxiety decreased ss12 Disposition Summary: 10/15/24 22:29 Transfer Ordered Notes: Transfer Location: '[facility] vc1 Reason: Higher level of care vc1 Condition: Stable(10/15/24 22:29) vc1 Problem: an ongoing problem(10/15/24 22:29) vc1 Symptoms: have worsened(10/15/24 22:29) vc1 Accepting Physician: [facility] physician(10/15/24 23:34) ss12 Diagnosis - Alcohol dependence with withdrawal(10/15/24 22:29) vc1 Forms: - Medication Reconciliation Form vc1 - SBAR form vc1 Critical care time excluding procedures: 21:37 Critical care time: Bedside Care: 35 minutes, Consultation: 10 minutes. Total time: 45 ms3 minutes Signatures: Dispatcher [employer] EDBacilio Lazo RN RN Damien Ronquillo DO DO ms3 Yesenia Valeznuela RN RN vc1 Estrella Winston MD MD sw6 Ximena Bueno RN RN ss12 Corrections: (The following items were deleted from the chart) 16:58 16:58 ETOH 117; Intoxicated. 6 sw6 19:08 17:35 Telemetry/MedSurg (Inpatient) sw6 vc1 19:08 17:35 sw6 vc1 22:27 17:35 Inpatient Admission sw6 vc1 22: 17:35 Frandy, Azfar sw6 vc1 22: 17:35 Fair sw6 vc1 22: 17:35 new sw6 vc1 22: 17:35 are unchanged sw6 vc1 22: 17:35 Standard sw6 vc1 22: 17:35 Alcohol dependence with withdrawal sw6 vc1 22: 17:35 Tachycardia, unspecified sw6 vc1 22: 19:08 [facility] ER HOLD vc1 vc1 22:27 19:08 ERHOLD- vc1 vc1 23:34 22:29 [facility] physician vc1 ss12
[2024-10-15] MEDS ORDERED: LORazepam 2 MG/ML VIAL IV PRN (17:46)
[2024-10-15] MEDS ORDERED: FLUMAZENIL 0.1 MG/ML (5 mL VIAL) IV PRN (17:46)
[2024-10-15] MEDS ORDERED: FOLIC ACID 1 MG TABLET PO SCH (17:48)
[2024-10-15] MEDS ORDERED: THIAMINE HCL 100 MG TABLET PO SCH (17:48)
[2024-10-15] MEDS ORDERED: MULTIVITAMIN TAB PO SCH (17:49)
[2024-10-15] MEDS ORDERED: NA CHLORIDE 0.9% 1,000 ML IV SCH (18:00)
[2024-10-15] MEDS ORDERED: LORazepam 2 MG/ML VIAL IV SCH (18:00)
[2024-10-15] MEDS ORDERED: SODIUM CHLORIDE 0.9% 10ML INJ IV PRN (18:46)
[2024-10-15] MEDS ORDERED: PANTOPRAZOLE 40 MG INJ IVP SCH (21:00)
[2024-10-15] MEDS ORDERED: INSULIN GLARGINE 100 UNIT/ML SQ SCH (21:00)
[2024-10-15] MEDS ORDERED: INSULIN REGULAR (HUMAN) 100 UNIT/ML SQ SCH (21:00)
[2024-10-15] MEDS ORDERED: THIAMINE 200 MG/2 ML INJ ONE (21:38)
[2024-10-15] MEDS ORDERED: MULTIVITAMINS 10 ML VIAL (INJ) IV ONE (21:39)
[2024-10-15] MEDS ORDERED: FOLIC ACID 5 MG/ML VIAL ONE (21:39)
[2024-10-16 00:32] VITALS: TEMP 98
[2024-10-16 00:42] VITALS: BP 145/103
[2024-10-16] MEDS ORDERED: ENOXAPARIN 40 MG/0.4 ML SQ SCH (09:00)
[2024-10-16] MEDS ORDERED: NICOTINE 14 MG/PAT TD SCH (09:00)
--- NOTE | 2024-10-16 10:36 | P.DS ---
Admission Date: 10/15/24 Discharge Date: 10/15/24 Reason for Admission: Alcohol withdrawal Brief History of Present Illness: Diagnosis Acute alcohol withdrawal Alcohol dependence/use disorder Tachycardia Diabetes mellitus type 2insulin-dependent Hypertension Hyperlipidemia GERD Smoking abuse HPI 10/15/24 Cristiano Bob is a 38-year-old male with past medical history of hypertension, hyperlipidemia, diabetes mellitusIDDM, chronic alcohol abuse/dependence who presents to the ED with alcohol withdrawal symptoms such as tachycardia. Typically drinking bottles of wine daily replacing his vodka habit. While in the ED he was given benzodiazepines to can help control heart rates to no avail. Patient was admitted in June with same diagnosis. Laboratory evaluation significant for serum glucose 148, AST 75, ALT of 149, lipase 105, serum alcohol 117. Cristiano will be admitted to hospitalist service for further treatment of alcohol withdrawal. Hospital Course: Cristiano Bob was admitted to the ICU for proper monitoring for worsening DT. There was not an ICU bed available last night. Per ED provider note, Patient was transferred to the [facility] with worsening symptoms, 10/15/24 at 2229. This was made known to the hospitalist team this morning, 10/16/24. Physical Exam General: Alert, Oriented x3 HEENT: Atraumatic, Normocephalic Neck: Supple, 2+ carotid pulse no bruit Respiratory: Clear to auscultation bilaterally, Normal air movement Cardiovascular: Normal pulses, Irregular heart rate/rhythm (sinus tachycardia) Gastrointestinal: Normal bowel sounds, Soft and benign, Distended (obese) Musculoskeletal: No clubbing Integumentary: No rashes Neurological: Normal speech, Normal tone, Other (mild aggitation) <Kayy Gregorio - Last Filed: 10/16/24 10:31> Admission Date: 10/15/24 Discharge Date: 10/19/24 <Viktoriya Wise - Last Filed: 10/19/24 06:47> Disposition: DC/TX TO ANOTHER FOR OP CARE Discharge Condition: GOOD Vital Signs/Physical Exam: Temp Pulse Resp BP Pulse Ox 98 F 90 18 145/103 H 10/16/24 00:30 10/16/24 00:40 10/16/24 00:40 10/16/24 00:40 Laboratory Data at Discharge: WBC Cancelled 10/16/24 07:27 Hgb Cancelled 10/16/24 07:27 Hct Cancelled 10/16/24 07:27 Plt Count Cancelled 10/16/24 07:27 PT 10.4 SECONDS (10-13.0) 10/15/24 14:38 INR 0.92 10/15/24 14:38 APTT 31.2 SECONDS (27.2-37.4) 10/15/24 14:38 Sodium Cancelled 10/16/24 07:27 Potassium Cancelled 10/16/24 07:27 BUN Cancelled 10/16/24 07:27 Creatinine Cancelled 10/16/24 07:27 Glucose Cancelled 10/16/24 07:27 Phosphorus Cancelled 10/16/24 07:27 Magnesium Cancelled 10/16/24 07:27 Total Bilirubin Cancelled 10/16/24 05:00 AST Cancelled 10/16/24 05:00 ALT Cancelled 10/16/24 05:00 Alkaline Phosphatase Cancelled 10/16/24 05:00 Lipase 105 U/L (13-75) H 10/15/24 14:38 <Kayy Gregorio - Last Filed: 10/16/24 10:31> Vital Signs/Physical Exam: Temp Pulse Resp BP Pulse Ox 98 F 90 18 145/103 H 10/16/24 00:30 10/16/24 00:40 10/16/24 00:40 10/16/24 00:40 Laboratory Data at Discharge: WBC Cancelled 10/17/24 05:00 Hgb Cancelled 10/17/24 05:00 Hct Cancelled 10/17/24 05:00 Plt Count Cancelled 10/17/24 05:00 PT 10.4 SECONDS (10-13.0) 10/15/24 14:38 INR 0.92 10/15/24 14:38 APTT 31.2 SECONDS (27.2-37.4) 10/15/24 14:38 Sodium Cancelled 10/17/24 05:00 Potassium Cancelled 10/17/24 05:00 BUN Cancelled 10/17/24 05:00 Creatinine Cancelled 10/17/24 05:00 Glucose Cancelled 10/17/24 05:00 Phosphorus Cancelled 10/17/24 05:00 Magnesium Cancelled 10/17/24 05:00 Total Bilirubin Cancelled 10/16/24 05:00 AST Cancelled 10/16/24 05:00 ALT Cancelled 10/16/24 05:00 Alkaline Phosphatase Cancelled 10/16/24 05:00 Lipase 105 U/L (13-75) H 10/15/24 14:38 <Viktoriya Wise - Last Filed: 10/19/24 06:47> <Kayy Gregorio - Last Filed: 10/16/24 10:31> Physician Review: Patient Assessed, Agree with Above Assessment and Plan <Viktoriya Wise - Last Filed: 10/19/24 06:47> Home Medications: Montelukast [Singulair*] 10 mg PO DAILY 02/21/14 Amlodipine Besylate 10 mg PO DAILY 08/04/19 Duloxetine HCl 60 mg PO DAILY 08/04/19 Insulin Glargine,Hum.rec.anlog [Lantus Solostar] 20 units SQ BID 08/04/19 Losartan Potassium 50 mg PO DAILY 08/04/19 Metformin HCl [Glucophage*] 1,000 mg PO DAILY 08/04/19 ARIPiprazole [Aripiprazole] 10 mg PO DAILY 06/11/22 Atorvastatin Calcium [Lipitor] 40 mg PO BEDTIME 06/11/22 Prazosin HCl 2 mg PO BEDTIME 06/11/22 hydrOXYzine HCL [Atarax*] 25 mg PO BID 06/11/22 Buspirone HCl 15 mg PO BID PRN 06/14/24 Docusate Sodium 100 mg PO DAILY 06/14/24 Empagliflozin [Jardiance] 25 mg PO DAILY 06/14/24 Metoprolol Tartrate [Lopressor*] 25 mg PO BID 6AM 6PM 06/14/24 Naproxen 375 mg PO BID PRN 06/14/24 Omeprazole 40 mg PO DAILY 06/14/24 Physician Discharge Instructions: [facility] available for proper monitoring for worsening DT. [facility]up: [facility] [Primary Care Provider] -
[2024-10-16 16:06] VITALS: O2SAT 96
[2024-10-17] MEDS ORDERED: LORazepam 2 MG/ML VIAL IV SCH (18:00)
== END 2024-10-16 23:34 | disposition home or self-care (01) | DRG 897 ==
LOC: ER 13:14 → ERHOLD 17:46
PROVIDERS: ADMIT Family Medicine; ATTEND Family Medicine
DX: F10.239 Alcohol dependence with withdrawal, unspecified (principal); I10 Essential (primary) hypertension; E78.00 Pure hypercholesterolemia, unspecified; E11.9 Type 2 diabetes mellitus without complications; K21.9 Gastro-esophageal reflux disease without esophagitis; F17.200 Nicotine dependence, unspecified, uncomplicated; R00.0 Tachycardia, unspecified; Z79.4 Long term (current) use of insulin; Z79.84 Long term (current) use of oral hypoglycemic drugs; Z79.899 Other long term (current) drug therapy; Y90.5 Blood alcohol level of 100-119 mg/100 ml
CPT/HCPCS: 36415; 80053; 81001; 82077; 82947; 83690; 85025; 85610; 85730; 93005; 96374; 96375; 99285; J3360; J3411; J7030

== ENCOUNTER 2024-10-26 13:30 | Inpatient (IN) | payer OTHER ==
[2024-10-26] MEDS ORDERED: THIAMINE 200 MG/2 ML INJ ONE (16:37)
[2024-10-26] MEDS ORDERED: ONDANSETRON 4 MG/2 ML VIAL ONE (16:37)
[2024-10-26] MEDS ORDERED: MULTIVITAMINS 10 ML VIAL (INJ) IV ONE (16:37)
[2024-10-26] MEDS ORDERED: FOLIC ACID 5 MG/ML VIAL ONE (16:37)
[2024-10-26] MEDS ORDERED: NA CHLORIDE 0.9% 2,000 ML ONE (16:38)
[2024-10-26 17:00] LABS: Absolute Lymphocytes (CBC) 2.4 K/uL (0.7-4.9); Hematocrit 48.8 % (39.6-49.0); Hemoglobin 16.4 g/dL (13.6-17.9); MCH 28.6 pg (27.0-35.0); MCHC 33.5 g/dL (32.0-36.0); MCV 85.3 fL (80-100); MPV 7.0 fL (7.6-11.3); Nucleated RBC Absolute Count 0.0 (0-0); Nucleated Red Blood Cells % 0.1 % (0-0); RBC Red Blood Cell Count 5.72 M/uL (4.33-5.43); White Blood Count 7.10 thou/uL (4.3-10.9)
[2024-10-26 17:14] LABS: PT Prothrombin Time 10.5 SECONDS (10-13.0); PTT, Activated Partial Thromb 33.9 SECONDS (27.2-37.4); Protime INR 0.93
[2024-10-26 17:31] LABS: METHAMPHETAM NEGATIVE (NEGATIVE); THC Cannibis NEGATIVE (NEGATIVE)
[2024-10-26 17:35] LABS: ALT/SGPT 166 U/L (16-61); AST/SGOT 80 U/L (15-37); Albumin 3.9 g/dL (3.4-5.0); Albumin/Globulin Ratio 1.0 (1.1-1.8); Alkaline Phosphatase 105 U/L (45-117); Anion Gap 16.1 mEq/L (5.0-15.0); BUN Blood Urea Nitrogen 9 mg/dL (7-18); Bilirubin Indirect, Calculated 0.2 mg/dL (0.2-0.8); Globulin 3.9 g/dL (2.3-3.5); Glucose Level 109 mg/dL (74-106); Potassium 4.1 mEq/L (3.5-5.1)
--- NOTE | 2024-10-26 17:40 | EDPHYS ---
Physician Documentation [facility] Name: Cristiano Bob Age: 38 yrs Sex: Male : 1985 Arrival Date: 10/26/2024 Time: 13:30 Bed 7 Private MD: ED Physician Ervin Goldberg HPI: 10/26 16:26 This 38 yrs old Male presents to ER via EMS with complaints of ETOH Abuse. rachel 16:26 The patient presents to the emergency department alcoholic. Context: Method: the [facility] patient has a confirmed or suspected ingestion, of alcohol. Associated signs and symptoms: Pertinent positives: nausea. Severity of symptoms: At their worst the symptoms were moderate in the emergency department the symptoms are unchanged. Historical: - Allergies: 13:40 No Known Allergies; me1 - PMHx: 13:40 acid reflux; Alcoholism; Hypercholesterolemia; Hypertension; Prediabetic; me1 - PSHx: 13:40 facial reconstruction; me1 - Immunization history:: Adult Immunizations up to date. - Infectious Disease History:: Denies. ROS: 16:30 Constitutional: Negative for fever, chills, and weight loss, Eyes: Negative for injury, rachel pain, redness, and discharge, ENT: Negative for injury, pain, and discharge, Neck: Negative for injury, pain, and swelling, Cardiovascular: Negative for chest pain, palpitations, and edema, Respiratory: Negative for shortness of breath, cough, wheezing, and pleuritic chest pain, Abdomen/GI: Negative for abdominal pain, nausea, vomiting, diarrhea, and constipation, Back: Negative for injury and pain, : Negative for injury, bleeding, discharge, and swelling, MS/Extremity: Negative for injury and deformity, Skin: Negative for injury, rash, and discoloration, Neuro: Negative for headache, weakness, numbness, tingling, and seizure, Psych: Negative for depression, anxiety, suicide ideation, homicidal ideation, and hallucinations, Allergy/Immunology: Negative for hives, rash, and allergies, Endocrine: Negative for neck swelling, polydipsia, polyuria, polyphagia, and marked weight changes, Hematologic/Lymphatic: Negative for swollen nodes, abnormal bleeding, and unusual bruising, 16:30 MS/extremity: Negative for acute changes, Exam: 16:30 Constitutional: This is a well developed, well nourished patient who is awake, alert, rahcel and in no acute distress. Head/Face: Normocephalic, atraumatic. Eyes: Pupils equal round and reactive to light, extra-ocular motions intact. Lids and lashes normal. Conjunctiva and sclera are non-icteric and not injected. Cornea within normal limits. Periorbital areas with no swelling, redness, or edema. ENT: Nares patent. No nasal discharge, no septal abnormalities noted. Tympanic membranes are normal and external auditory canals are clear. Oropharynx with no redness, swelling, or masses, exudates, or evidence of obstruction, uvula midline. Mucous membranes moist. Neck: Trachea midline, no thyromegaly or masses palpated, and no cervical lymphadenopathy. Supple, full range of motion without nuchal rigidity, or vertebral point tenderness. No Meningismus. Chest/axilla: Normal chest wall appearance and motion. Nontender with no deformity. No lesions are appreciated. Respiratory: Lungs have equal breath sounds bilaterally, clear to auscultation and percussion. No rales, rhonchi or wheezes noted. No increased work of breathing, no retractions or nasal flaring. Abdomen/GI: Soft, non-tender, with normal bowel sounds. No distension or tympany. No guarding or rebound. No evidence of tenderness throughout. Back: No spinal tenderness. No costovertebral tenderness. Full range of motion. Skin: Warm, dry with normal turgor. Normal color with no rashes, no lesions, and no evidence of cellulitis. MS/ Extremity: Pulses equal, no cyanosis. Neurovascular intact. Full, normal range of motion., bilateral aka Neuro: Awake and alert, GCS 15, oriented to person, place, time, and situation. Cranial nerves II-XII grossly intact. Motor strength 5/5 in all extremities. Sensory grossly intact. Cerebellar exam normal. Normal gait. Psych: Awake, alert, with orientation to person, place and time. Behavior, mood, and affect are within normal limits. 16:30 Cardiovascular: Rate: tachycardic, actual rate is 110 bpm, Rhythm: regular, Pulses: Pulses are 4+ in bilateral radial, brachial, femoral, popliteal, posterior tibial and and dorsalis pedis arteries.. Heart sounds: normal, normal S1and S2, no S3 or S4, no murmur, no rub, no gallop, Edema: is not appreciated, JVD: is not appreciated, 16:30 ECG was reviewed by the Attending Physician. 16:30 Musculoskeletal/extremity: DVT Exam: No signs of deep vein thrombosis. no pain, no swelling, no tenderness, negative Homans' sign noted on exam, no appreciated bluish discoloration, no erythema, no increased warmth, 16:52 ECG was reviewed by the Attending Physician. [facility] Vital Signs: 13:38 BP 140 / 87; Pulse 110; Resp 18; Temp 98.2; Pulse Ox 97% ; me1 18:34 BP 147 / 90; Pulse 120; Resp 20; Pulse Ox 95% ; bp 19:21 BP 146 / 76; Pulse 119; Resp 19 S; Pulse Ox 97% on R/A; lg3 [place] Coma Score: 16:30 Eye Response: spontaneous(4). Motor Response: obeys commands(6). Verbal Response: rachel oriented(5). Total: 15. MDM: 13:39 Medical Screening Exam initiated rachel 16:32 Differential diagnosis: Ingestion/exposure to alcoholic polypharmacy, over medication, rachel hypoglycemia, closed head injury, intracranial hemorrhage. Data reviewed: vital signs, nurses notes, lab test result(s), EKG. Consideration of Admission/Observation Escalation of care including admission/observation considered. I considered the following discharge prescriptions or medication management in the emergency department Medications were administered in the Emergency Department. See MAR. Independent interpretation of the following test(s) in the Emergency Department EKG: See my EKG interpretation above. Test considered but Not performed: CT: no ct head. Historians other than the Patient: pt well informed. Care significantly affected by the following chronic conditions: Hypertension, Obesity, gerd, alcoholic, high chlesterol. 10/26 13:40 Order name: Acetaminophen; Complete Time: 18:09 [facility] 10/26 13:40 Order name: Basic Metabolic Panel; Complete Time: 18:09 [facility] 10/26 13:40 Order name: CBC with Diff; Complete Time: 17:16 [facility] 10/26 13:40 Order name: ETOH Level; Complete Time: 18: [facility] 10/26 13:40 Order name: Hepatic Function; Complete Time: 18:09 [facility] 10/26 13:40 Order name: PT-INR; Complete Time: 17:16 [facility] 10/26 13:40 Order name: Ptt, Activated; Complete Time: 17:16 [facility] 10/26 13:40 Order name: Salicylate; Complete Time: 18:09 [facility] 10/26 13:40 Order name: Urine Drug Screen; Complete Time: 17:34 [facility] 10/26 18:34 Order name: CBC with Automated Diff EDMS 10/26 18:34 Order name: CBC with Automated Diff EDMS 10/26 18:34 Order name: Comprehensive Metabolic Panel EDMS 10/26 18:34 Order name: Comprehensive Metabolic Panel EDMS 10/26 13:40 Order name: EKG - Nurse/Tech; Complete Time: 16:52 [facility] 10/26 13:40 Order name: IV Saline Lock; Complete Time: 16:52 [facility] 10/26 13:40 Order name: Labs collected and sent; Complete Time: 16:52 [facility] 10/26 13:40 Order name: Suicide Screening ([place]); Complete Time: 16:20 [facility] 10/26 17:17 Order name: PO challenge: gatorade; Complete Time: 17:22 [facility] EC:52 Rate is 121 beats/min. Rhythm is regular. QRS [place] is Normal. LA interval is normal. rachel QRS interval is normal. QT interval is normal. No Q waves. T waves are Normal. No ST changes noted. Clinical impression: Sinus tachycardia. Interpreted by me. Reviewed by me. Administered Medications: 16:51 Drug: Banana Bag - (Multivitamin IV 1 amp, NS 0.9% IV 1000 ml, Thiamine IV 100 mg, bp foLIC Acid IVPB 1 mg) IV at 500 ml/hr once Route: IV; Rate: 500 ml/hr; Site: right antecubital; 19:23 Follow up: Response: No adverse reaction; IV Status: Completed infusion; IV Intake: lg3 1000ml 16:51 Drug: Ondansetron IVP 8 mg IVP once; over 2 minutes Route: IVP; Site: right antecubital;bp 19:23 Follow up: Response: No adverse reaction lg3 16:52 Drug: NS 0.9% IV 1000 ml IV at 1000 ml once; to be given as a bolus over 60 minutes bp Route: IV; Rate: 1000 ml; Site: right antecubital; 19:23 Follow up: Response: No adverse reaction; IV Status: Completed infusion; IV Intake: lg3 1000ml 16:52 Drug: Thiamine IV 100 mg IV at bolus once Route: IV; Rate: bolus; Site: right bp antecubital; 19:24 Follow up: Response: No adverse reaction; IV Status: Completed infusion; IV Intake: lg3 0.2ml 18:09 CANCELLED (Duplicate Order): ativan1 mg IVP once [facility] 18:34 Drug: Ativan IVP 2 mg IVP once Route: IVP; Site: right antecubital; bp 19:23 Follow up: Response: No adverse reaction; Marked relief of symptoms; RASS: Alert and lg3 Calm (0) Disposition Summary: 10/26/24 17:39 Hospitalization Ordered Notes: Hospitalization Status: Inpatient Admission rachel Provider: Marcel Kim cha Location: Intensive Care Unit rachel Condition: Fair rachel Problem: new rachel Symptoms: have improved rachel Bed/Room Type: Standard [facility] Room Assignment: 2-(10/26/24 19:12) rv1 Diagnosis - Alcohol abuse with intoxication rachel - Alcohol dependence rachel - Alcohol dependence with intoxication rachel - Tachycardia, unspecified rachel - Essential (primary) hypertension rachel Discharge Instructions: - Discharge Summary Sheet rachel - Alcohol Intoxication rachel - Alcohol Use Disorder rachel - Alcohol Intoxication, [id number] rachel - Alcohol Abuse and Nutrition rachel - Alcoholic Liver Disease, [id number] rachel - Alcoholic Liver Disease rachel Forms: - Medication Reconciliation Form rachel - SBAR form rachel - Leadership Thank You Letter rachel Signatures: Dispatcher [employer] EDErvin Nazario MD MD cha Peltier, Brian RN RN Tara Macias rv1 Darcy Dueñas RN RN me1 Jennifer Portillo RN lg3 Corrections: (The following items were deleted from the chart) 16:52 16:30 Rate is 100 beats/min. Rhythm is regular. QRS [place] is Normal. LA interval is rachel normal. QRS interval is normal. QT interval is normal. No Q waves. T waves are Normal. No ST changes noted. Clinical impression: NSR w/ Non-specific ST/T Changes and No evidence of ischemia. Interpreted by me. Reviewed by me. rachel 18:09 18:09 Ativan IVP 1 mg IVP once ordered. [facility] 19:12 17:39 rachel rv1
--- NOTE | 2024-10-26 17:40 | ER ---
Nurse's Notes [facility] Name: Cristiano Bob Age: 38 yrs Sex: Male : 1985 Arrival Date: 10/26/2024 Time: 13:30 Bed 7 Private MD: Diagnosis: Alcohol abuse with intoxication;Alcohol dependence;Alcohol dependence with intoxication;Tachycardia, unspecified;Essential (primary) hypertension Presentation: 10/26 13:38 Chief complaint: EMS states: toned out for etoh abuse. Patient reports drinking 4 me1 bottles of wine today and that [facility] BGL 121. Coronavirus screen: At this time, the client does not indicate any symptoms associated with coronavirus-19. Ebola Screen: No symptoms or risks identified at this time. Initial Sepsis Screen: Does the patient meet any 2 criteria? HR > 90 bpm. Does the patient have a suspected source of infection? No. Patient's initial sepsis screen is negative. Risk Assessment: Do you want to hurt yourself or someone else? Patient reports no desire to harm self or others. Onset of symptoms is unknown. 13:38 Method Of Arrival: EMS: [facility] 13:38 Acuity: ROLY 3 me1 Triage Assessment: 16:00 General: Appears in no apparent distress. Behavior is cooperative, appropriate for age, bp anxious. Pain: Denies pain. EENT: No deficits noted. Neuro: Level of Consciousness is awake, alert, obeys commands, Oriented to Appropriate for age. Cardiovascular: Rhythm is sinus rhythm. Respiratory: No deficits noted. GI: No signs and/or symptoms were reported involving the gastrointestinal system. : No signs and/or symptoms were reported regarding the genitourinary system. Derm: No deficits noted. Musculoskeletal: No deficits noted. Historical: - Allergies: 13:40 No Known Allergies; me1 - PMHx: 13:40 acid reflux; Alcoholism; Hypercholesterolemia; Hypertension; Prediabetic; me1 - PSHx: 13:40 facial reconstruction; me1 - Immunization history:: Adult Immunizations up to date. - Infectious Disease History:: Denies. Screenin:36 [facility] ED Fall Risk Assessment (Adult) History of falling in the last 3 months, bp including since admission No falls in past 3 months (0 pts) Confusion or Disorientation No (0 pts) Intoxicated or Sedated No (0 pts) Impaired Gait No (0 pts) Mobility Assist Device Used No (0 pt) Altered Elimination No (0 pt) Score/Fall Risk Level 0 - 2 = Low Risk Oriented to surroundings. Abuse screen: Denies threats or abuse. Denies injuries from another. Nutritional screening: No deficits noted. Tuberculosis screening: No symptoms or risk factors identified. 19:21 Clinical [place] Withdrawal Assessment for Alcohol, revised (CIWA-Ar): lg3 Nausea/Vomitin - No nausea or vomiting Headache: 0 - Not present Paroxysmal Sweats: 0 - No sweats visible Anxiety: 0 - No anxiety, at ease Agitation: 0 - Normal actiivty Tremor: 1 - Not visible, but can be felt at fingertips Auditory Disturbances: 0 - Not present Visual Disturbances: 0 - Not present Tactile Disturbances: 0 - None Orientation and Clouding of Sensorium: 0 - Oriented and can do serial additions Total Score: < 10 Very mild withdrawal. Assessment: 16:00 General: SEE TRIAGE NOTE. bp 18:00 Reassessment: Patient is alert, oriented x 3, equal unlabored respirations, skin bp warm/dry/pink. Cardiovascular: Rhythm is sinus tachycardia. 19:18 General: attempted to call report. nurse not avaliable. ha1 19:21 General: Appears in no apparent distress. comfortable, Behavior is calm, cooperative. lg3 Pain: Denies pain. Neuro: No deficits noted. Jones Agitation-Sedation Scale (RASS): 0 - Alert and Calm Level of Consciousness is awake, alert, obeys commands, Oriented to person, place, time, situation. Cardiovascular: No deficits noted. Denies chest pain, shortness of breath, Capillary refill < 3 seconds Clubbing of nail beds is absent JVD is absent Patient's skin is warm and dry. Respiratory: No deficits noted. Airway is patent Respiratory effort is even, unlabored, Respiratory pattern is regular, symmetrical. GI: No deficits noted. No signs and/or symptoms were reported involving the gastrointestinal system. : No signs and/or symptoms were reported regarding the genitourinary system. EENT: No deficits noted. No signs and/or symptoms were reported regarding the EENT system. Derm: No deficits noted. No signs and/or symptoms reported regarding the dermatologic system. Skin is intact, is healthy with good turgor, Skin is dry, Skin is normal, Skin temperature is warm. Musculoskeletal: No deficits noted. No signs and/or symptoms reported regarding the musculoskeletal system. Circulation, motion, and sensation intact. Range of motion: intact in all extremities. 20:43 Reassessment: Patient appears in no apparent distress at this time. No changes from lg3 previously documented assessment. Patient and/or family updated on plan of care and expected duration. Pain level reassessed. Patient is alert, oriented x 3, equal unlabored respirations, skin warm/dry/pink. Psych: 19:21 [place] Suicide Severity Screening: In the past month, have you wished you were lg3 or wished you could go to sleep and not wake up? Patient responds "No." "In the past month, have you actually had any thoughts of killing yourself?" Patient responds "no." "In your lifetime, have you ever done anything, started to do anything, or prepared to do anything to end your life?" Patient responds "no.". Subjective: Delusions are denied, Hallucinations are denied. Objective: Patient is cooperative, Speech is normal, Affect is appropriate. Interventions:. Patient uses 4 bottles of wine, daily. Last use was 8 hours ago. Patient does not have a history of DTs. Commitment: Patient will be a voluntary commitment. Vital Signs: 13:38 BP 140 / 87; Pulse 110; Resp 18; Temp 98.2; Pulse Ox 97% ; me1 18:34 BP 147 / 90; Pulse 120; Resp 20; Pulse Ox 95% ; bp 19:21 BP 146 / 76; Pulse 119; Resp 19 S; Pulse Ox 97% on R/A; lg3 [place] Coma Score: 16:30 Eye Response: spontaneous(4). Motor Response: obeys commands(6). Verbal Response: rachel oriented(5). Total: 15. ED Course: 13:31 Patient arrived in ED. mr 13:39 Ervin Goldberg MD is Attending Physician. rachel 13:40 Triage completed. me1 13:40 Arm band placed on Patient placed in waiting room. me1 16:19 Bacilio Gonsales, RN is Primary Nurse. bp 16:52 EKG done, by technology advisor. ts3 16:52 Initial lab(s) drawn, by me, sent to lab. Urine collected: clean catch specimen, EKG bp done, by ED staff, reviewed by Ervin Goldberg MD. Inserted saline lock: 20 gauge in right antecubital area, using aseptic technique. Blood collected. Flushed with 10 mL NS. 17:38 Marcel Kim MD is Hospitalizing Provider. rachel 18:36 Patient has correct armband on for positive identification. bp 19:21 Client placed on continuous cardiac and pulse oximetry monitoring. NIBP monitoring lg3 applied. equipment monitor phototypesetting on. Door closed. Noise minimized. Warm blanket given. Pillow given. 19:21 No provider procedures requiring assistance completed. Patient admitted, IV remains in lg3 place. Administered Medications: 16:51 Drug: Banana Bag - (Multivitamin IV 1 amp, NS 0.9% IV 1000 ml, Thiamine IV 100 mg, bp foLIC Acid IVPB 1 mg) IV at 500 ml/hr once Route: IV; Rate: 500 ml/hr; Site: right antecubital; 19:23 Follow up: Response: No adverse reaction; IV Status: Completed infusion; IV Intake: lg3 1000ml 16:51 Drug: Ondansetron IVP 8 mg IVP once; over 2 minutes Route: IVP; Site: right antecubital;bp 19:23 Follow up: Response: No adverse reaction lg3 16:52 Drug: NS 0.9% IV 1000 ml IV at 1000 ml once; to be given as a bolus over 60 minutes bp Route: IV; Rate: 1000 ml; Site: right antecubital; 19:23 Follow up: Response: No adverse reaction; IV Status: Completed infusion; IV Intake: lg3 1000ml 16:52 Drug: Thiamine IV 100 mg IV at bolus once Route: IV; Rate: bolus; Site: right bp antecubital; 19:24 Follow up: Response: No adverse reaction; IV Status: Completed infusion; IV Intake: lg3 0.2ml 18:09 CANCELLED (Duplicate Order): ativan1 mg IVP once rachel 18:34 Drug: Ativan IVP 2 mg IVP once Route: IVP; Site: right antecubital; bp 19:23 Follow up: Response: No adverse reaction; Marked relief of symptoms; RASS: Alert and lg3 Calm (0) Medication: 19:21 VIS not applicable for this client. lg3 Intake: 19:23 IV: 1000ml; Total: 1000ml. lg3 19:23 IV: 1000ml; Total: 2000ml. lg3 19:24 IV: 0ml; Total: 2000ml. lg3 Outcome: 17:39 Decision to Hospitalize by Provider. rachel 20:44 Admitted to ICU accompanied by nurse, room 2, Report called to Mathew lg3 20:44 Condition: stable 20:44 Instructed on the need for admit, Demonstrated understanding of instructions, 20:45 Patient left the ED. lg3 Signatures: Ervin Goldberg MD MD cha Rivera, María, Reg Reg mr Bacilio Gonsales, RN RN Jennifer Jones, RN RN lg3 Mayra Aviles, RN RN ha1 Darcy Dueñas RN RN tx1 Isha Miller ts3 Corrections: (The following items were deleted from the chart) 19:41 19:30 BP 123 / 71; Pulse 142bpm; Resp 41bpm; Pulse Ox 93% 3 lpm Nasal Cannula; Temp lg3 101F Oral; lg3
[2024-10-26] MEDS ORDERED: ACETAMINOPHEN 325 MG TABLET PO PRN (18:29)
[2024-10-26] MEDS ORDERED: ONDANSETRON 4 MG/2 ML VIAL IV PRN (18:29)
--- NOTE | 2024-10-26 18:29 | P.HP ---
Certification for Inpatient Patient admitted to: Inpatient With expected LOS: >2 Midnights Practitioner: I am a practitioner with admitting privileges, knowledge of patient current condition, hospital course, and medical plan of care. Services: Services provided to patient in accordance with Admission requirements found in Title 42 Section 412.3 of the Code of Federal Regulations Patient History Date of Service: 10/26/24 Reason for admission: Alcohol abuse History of Present Illness: 38 yrs old Male with past medical history of acid reflux, hypertension, hyperlipidemia, prediabetes, alcoholism who was brought to ER with complaints of ETOH Abuse. The patient presents to the emergency department alcoholic and patient has a confirmed ingestion of alcohol. Associated with nausea and vomiting. Patient denies any hallucination or seizures Patient was assessed in the ER and was admitted for further management of alcohol abuse. Allergies No Known Allergies Allergy (Verified 02/21/14 15:00) Home medications list reviewed: Yes Home Medications: Montelukast [Singulair*] 10 mg PO DAILY 02/21/14 Amlodipine Besylate 10 mg PO DAILY 08/04/19 Duloxetine HCl 60 mg PO DAILY 08/04/19 Insulin Glargine,Hum.rec.anlog [Lantus Solostar] 20 units SQ BID 08/04/19 Losartan Potassium 50 mg PO DAILY 08/04/19 Metformin HCl [Glucophage*] 1,000 mg PO DAILY 08/04/19 ARIPiprazole [Aripiprazole] 10 mg PO DAILY 06/11/22 Atorvastatin Calcium [Lipitor] 40 mg PO BEDTIME 06/11/22 Prazosin HCl 2 mg PO BEDTIME 06/11/22 hydrOXYzine HCL [Atarax*] 25 mg PO BID 06/11/22 Buspirone HCl 15 mg PO BID PRN 06/14/24 Docusate Sodium 100 mg PO DAILY 06/14/24 Empagliflozin [Jardiance] 25 mg PO DAILY 06/14/24 Metoprolol Tartrate [Lopressor*] 25 mg PO BID 6AM 6PM 06/14/24 Naproxen 375 mg PO BID PRN 06/14/24 Omeprazole 40 mg PO DAILY 06/14/24 - Past Medical/Surgical History Diabetic: Yes Past Medical History: Reviewed- Non-Contributory -: Hypertension -: Type 2 Diabetes, Insulin Dependent -: Alcohol Abuse -: GERD -: Hyperlipidemia Past Surgical History: Reviewed- Non-Contributory -: Facial reconstruction Psychosocial/ Personal History: Patient is . - Family History Family History: Reviewed- Non-Contributory - Social History Smoking Status: Current some day smoker Alcohol use: Yes CD- Drugs: No Caffeine use: Yes Review of Systems 10-point ROS is otherwise unremarkable Other: constitutional: Reports: generalized weakness. Skin: Denies: rash. Allergy/Immun: Denies: rhinorrhea, sneezing. Eyes: Denies: visual loss/blurred. ENT: Denies: earache, nasal congestion. Respiratory: Denies: non productive cough. Cardiovascular: Denies: chest pain, palpitations. GI: Denies: diarrhea, nausea. : Denies: dysuria. Musculoskeletal: Reports: arthritis. Denies: extremity pain. Heme: Denies: bleeding. Endocrine: Denies: polydipsia. Neuro: Reports: dizziness, gait problem, lightheaded, spinning sensation. Psych: Reports: anxiety. All systems rev & neg: except as noted Physical Examination - Vital Signs Temperature: 98.6 F Blood Pressure: 144/87 Pulse: 121 Respirations: 94 Pulse Ox (%): 94 - Physical Exam General: Alert, In no apparent distress, Oriented x3 HEENT: Atraumatic, Normocephalic Neck: Supple, JVD not distended Respiratory: Clear to auscultation bilaterally, Normal air movement Cardiovascular: Regular rate/rhythm, Normal S1 S2 Capillary refill: <2 Seconds Gastrointestinal: Soft and benign, W/out hepatosplenomegaly Musculoskeletal: No clubbing, No swelling Integumentary: No rashes Neurological: Other (Alert awake nonfocal) Lymphatics: No axilla or inguinal lymphadenopathy - Studies Laboratory Data (last 24 hrs) 10/26/24 10/26/24 10/26/24 16:50 16:50 16:50 WBC 7.10 Hgb 16.4 Hct 48.8 Plt Count 302 PT 10.5 INR 0.93 APTT 33.9 Sodium 139 Potassium 4.1 BUN 9 Creatinine 0.84 Glucose 109 H Total Bilirubin 0.4 AST 80 H ALT 166 H Alkaline Phosphatase 105 Assessment and Plan - Problems (Diagnosis) (1) Alcohol abuse Current Visit: No Status: Acute Plan: Alcohol abuse Monitor closely on telemetry Watch closely for delirium tremens Ativan as needed Banana bag Watch closely for withdrawal Hypertension Antihypertensives titrated Continue home medications and titrate as needed Hyperlipidemia Continue statin Elevated LFTs Monitor LFTs closely Will get ultrasound of the abdomen GI/DVT prophylaxis Advanced directive full code Discharge Plan: Home Plan to discharge in: 48 Hours - Advance Directives Does patient have a Living Will: No Does patient have a Durable POA for Healthcare: No Time Spent Managing Pts Care (In Minutes): 48
[2024-10-26] MEDS ORDERED: LORazepam 2 MG/ML VIAL ONE (18:32)
[2024-10-26 21:17] VITALS: BMI 35.1
[2024-10-26] MEDS: LORazepam 2 MG/ML VIAL IV PRN (22:08)
[2024-10-27 06:01] LABS: Absolute Lymphocytes (CBC) 1.6 K/uL (0.7-4.9); Hematocrit 46.2 % (39.6-49.0); Hemoglobin 16.0 g/dL (13.6-17.9); MCH 29.4 pg (27.0-35.0); MCHC 34.7 g/dL (32.0-36.0); MCV 84.8 fL (80-100); MPV 7.0 fL (7.6-11.3); Nucleated RBC Absolute Count 0.0 (0-0); Nucleated Red Blood Cells % 0.1 % (0-0); RBC Red Blood Cell Count 5.44 M/uL (4.33-5.43); White Blood Count 6.70 thou/uL (4.3-10.9)
[2024-10-27 06:23] LABS: ALT/SGPT 146.0 U/L (16-61); AST/SGOT 81.0 U/L (15-37); Albumin 3.7 g/dL (3.4-5.0); Albumin/Globulin Ratio 1.1 (1.1-1.8); Alkaline Phosphatase 88.0 U/L (45-117); Anion Gap 8.6 mEq/L (5.0-15.0); BUN Blood Urea Nitrogen 18.0 mg/dL (7-18); Globulin 3.3 g/dL (2.3-3.5); Glucose Level 102.0 mg/dL (74-106); Magnesium 2.1 mg/dL (1.6-2.4); Potassium 3.6 mEq/L (3.5-5.1)
[2024-10-27] MEDS: ENOXAPARIN 40 MG/0.4 ML SQ SCH (08:08)
[2024-10-27] MEDS: FOLIC ACID 1 MG, MULTIVITAMINS INJ 10 ML, THIAMINE HCL 100 MG in NA CHLORIDE 0.9% 1,000 ML IV SCH (08:43)
[2024-10-27] MEDS: METOPROLOL TARTRATE 5 MG/5 ML INJ IV SCH (10:42)
[2024-10-27] MEDS: METOPROLOL TAR 25 MG TAB PO SCH (13:50)
[2024-10-27] MEDS: NICOTINE 21 MG/PAT TD SCH (17:38)
[2024-10-28 08:31] LABS: Absolute Lymphocytes (CBC) 1.2 K/uL (0.7-4.9); Hematocrit 48.6 % (39.6-49.0); Hemoglobin 16.2 g/dL (13.6-17.9); MCH 28.9 pg (27.0-35.0); MCHC 33.4 g/dL (32.0-36.0); MCV 86.4 fL (80-100); MPV 7.4 fL (7.6-11.3); Nucleated RBC Absolute Count 0.0 (0-0); Nucleated Red Blood Cells % 0.1 % (0-0); RBC Red Blood Cell Count 5.63 M/uL (4.33-5.43); White Blood Count 6.10 thou/uL (4.3-10.9)
[2024-10-28 08:50] VITALS: TEMP 97.9
[2024-10-28 08:51] LABS: ALT/SGPT 142.0 U/L (16-61); AST/SGOT 58.0 U/L (15-37); Albumin 3.6 g/dL (3.4-5.0); Albumin/Globulin Ratio 1.0 (1.1-1.8); Alkaline Phosphatase 92.0 U/L (45-117); Anion Gap 11.9 mEq/L (5.0-15.0); BUN Blood Urea Nitrogen 15.0 mg/dL (7-18); Globulin 3.6 g/dL (2.3-3.5); Glucose Level 148.0 mg/dL (74-106); Potassium 3.9 mEq/L (3.5-5.1)
[2024-10-28] MEDS ORDERED: clonazePAM 0.5 MG TAB PO PRN (09:41)
[2024-10-28 11:20] VITALS: BP 127/89
[2024-10-28 13:00] VITALS: O2SAT 95
== END 2024-10-28 13:20 | disposition home or self-care (01) | DRG 897 ==
LOC: ER 13:30 → ERHOLD 18:29 → 3RD-ICU 20:19
PROVIDERS: ADMIT Family Medicine; ATTEND Hospitalist
DX: F10.229 Alcohol dependence with intoxication, unspecified (principal); E78.00 Pure hypercholesterolemia, unspecified; I10 Essential (primary) hypertension; E66.9 Obesity, unspecified; E11.9 Type 2 diabetes mellitus without complications; K21.9 Gastro-esophageal reflux disease without esophagitis; F17.200 Nicotine dependence, unspecified, uncomplicated; R00.0 Tachycardia, unspecified; R79.89 Other specified abnormal findings of blood chemistry; Z68.35 Body mass index [BMI] 35.0-35.9, adult; Z79.4 Long term (current) use of insulin; Z79.84 Long term (current) use of oral hypoglycemic drugs; Z79.899 Other long term (current) drug therapy; Y90.6 Blood alcohol level of 120-199 mg/100 ml
CPT/HCPCS: 36415; 80048; 80053; 80076; 80143; 80179; 80307; 82077; 82947; 83735; 84100; 85025; 85610; 85730; 93005; 94760; 96365; 96366; 96375; 99285; J1650; J2405; J3411; J7030